=== PATIENT | male | born 1930 | race Caucasian/White ===

== ENCOUNTER 2018-12-30 04:16 | Inpatient (IN) | payer MEDICARE, BC ==
[2018-12-30] MEDS ORDERED: Acetaminophen 325 MG TAB PO PRN (07:43)
[2018-12-30] MEDS ORDERED: Ondansetron PF 4 MG/2 ML Vial IVP PRN ×2 (07:43→09:34)
[2018-12-30] MEDS ORDERED: Ondansetron ODT 4 MG TAB SL PRN (07:43)
[2018-12-30] MEDS ORDERED: Sodium Chloride 0.65% Nasal 44 ML BOT EA NARE PRN (09:34)
[2018-12-30] MEDS ORDERED: Ondansetron ODT 4 MG TAB PO PRN (09:34)
[2018-12-30] MEDS ORDERED: HumaLOG 300 UNITS/3 ML VIAL SC PRN ×2 (09:34)
[2018-12-30] MEDS ORDERED: Calcium Carbonate 500 MG ChewTAB PO PRN (09:34)
[2018-12-30] MEDS ORDERED: Loperamide HCl 2 MG CAP PO PRN (09:34)
[2018-12-30] MEDS ORDERED: Bisacodyl 10 MG SUPP PR PRN (09:34)
[2018-12-30] MEDS ORDERED: Diabetic Tussin 200 MG/10 ML UDCUP PO PRN (09:34)
[2018-12-30] MEDS ORDERED: Cepastat Lozenges 1 LOZ PO PRN (09:34)
[2018-12-30] MEDS ORDERED: Dextrose 50% Abboject 50 ML SYRINGE SLOW IVP PRN (09:34)
[2018-12-30] MEDS ORDERED: Artificial Tears 18 DROP/0.9 ML EA EYE PRN (09:34)
[2018-12-30] MEDS ORDERED: Dextrose 5% in Water 1,000 ML IV PRN (09:34)
[2018-12-30] MEDS ORDERED: HYDROcodone/Acetaminophen 5/325 mg Tablet PO PRN (09:34)
[2018-12-30] MEDS ORDERED: Loratadine 10 MG TAB PO PRN (09:34)
[2018-12-30] MEDS ORDERED: Senokot S 8.6-50 MG TAB PO PRN (09:34)
[2018-12-30] MEDS ORDERED: hydrALAZINE 20 MG/ML VIAL SLOW IVP PRN (09:34)
[2018-12-30] MEDS ORDERED: Multivitamins, Adult 10 ML in Sodium Chloride 0.9% 500 ML IV SCH (10:45)
--- NOTE | 2018-12-30 11:32 | HP ---
PRIMARY CARE PHYSICIAN: Dr. Lamonte Yee. REASON FOR ADMISSION: Transferred from [facility] for acute on chronic respiratory failure, encephalopathy, pneumonia, and sepsis. 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 He lives at home. He is under hospice care. He has out of hospital DNR. The patient has pretty much advanced dementia and he is not able to provide any history. I spoke with the patient's daughter medical power of attorney law clerk, Michelle on [phone] and got history from her. Last night, the patient was coughing. The patient's family member suspected some chocking. He was more hypoxic than usual. He was more altered than his usual and that is why the patient's called 911. The patient was initially taken to [facility], where he was febrile with a temperature 102. He was altered, confused and hypoxic and subsequently after giving him antibiotic therapy, the patient was transferred to our emergency room. The patient was given Rocephin and he did tolerate very well without any side effects. He was given IV fluid and Tylenol. REVIEW OF SYSTEMS: All review of system tried to review the patient, but unable to review at this point because of advanced Alzheimer dementia and encephalopathy. PAST MEDICAL HISTORY: Hospice patient, advanced parkinsonism, dementia with behavioral disturbance, Alzheimer's type of dementia, hypertension, diabetes type 2, coronary artery disease, chronic respiratory failure on home oxygen therapy, dyslipidemia, history of non-Hodgkin's lymphoma treated with chemotherapy, gastroesophageal reflux disease, moderate aortic regurgitation, and moderate aortic sclerosis. PAST SURGICAL HISTORY: CABG x4, appendicectomy, colonoscopy, and bilateral inguinal hernia repair. PAST PSYCHIATRIC HISTORY: Anxiety and depression, advanced dementia. ALLERGIES: PENICILLIN. SOCIAL HISTORY: The patient is , lives at home with his . He is under hospice care. No history of tobacco, alcohol, or illicit drug abuse. CODE STATUS: Discussed with the patient's medical power of attorney law clerk and confirmed DNR status. FAMILY HISTORY: No significant strong family history of premature coronary artery disease, stroke, or cancer. EMERGENCY ROOM COURSE: The patient has received Rocephin, levofloxacin, IV fluid, and Tylenol at [facility]. The patient also received 2 L of fluid in our emergency room. PHYSICAL EXAMINATION: VITAL SIGNS: On arrival; blood pressure 142/71, pulse 106, respiratory rate 26, temperature 102, and saturation 90% on room air. Weight 81.6 kg. GENERAL: The patient is completely encephalopathic, nonverbal, no obvious acute distress. HEENT: Head; normocephalic and atraumatic. Eyes; pupils round and reactive to light. Extraocular muscle intact. ENT: Oropharynx within normal limits. Moist mucous membranes. No oral lesion. No pharyngeal erythema. No exudate. NECK: Supple. No JVD. No thyromegaly. No carotid bruit. LUNGS: Bilateral coarse breath sound. No wheeze. No rhonchi. No accessory muscles of respiration in use. CARDIAC: S1 and S2 regular. Tachycardia. No murmur. No gallop. No rub. ABDOMEN: Soft. Bowel sounds present. Nontender. Nondistended. No organomegaly. No mass. No suprapubic tenderness. BACK: Unremarkable. No CVA tenderness. EXTREMITIES: Upper extremities; passive movement of all joints are normal. Lower extremities; passive movement of all joints are normal. No edema. Good distal pulsation. SKIN: No skin rash. HEMATOLOGICAL SYSTEM: No lymphadenopathy. NEUROLOGIC: Unable to assess at this point because the patient is unresponsive. SIGNIFICANT LABORATORY DATA: Chest x-ray based on my review, chronic changes without any acute infiltration noted. CBC; WBC 17.0, hemoglobin 15.0, MCV 101.1, platelet 191, with left shift. BMP; sodium 141, potassium 4.2, chloride 105, carbon dioxide 20, BUN 15, creatinine 0.83, glucose 201, calcium 9.1, lactic acid 4.0. LFT; AST 12, ALT 7, alkaline phosphatase 121, albumin 4.3, CK of 19, and lipase 9. ASSESSMENT AND PLAN: Impression: 1. Sepsis, most likely related with pneumonia, community-acquired pneumonia versus aspiration pneumonia. The patient was febrile high-grade fever with tachycardia, tachypnea, hypoxia, lactic acidosis, all consistent with sepsis. We will also rule out underlying urinary tract infection. 2. Pneumonia, community-acquired versus aspiration pneumonia. We will consult Speech Therapy for speech evaluation and dietary assessment. The patient will be kept on levofloxacin. We will follow up on culture result and change antibiotic therapy accordingly. 3. Acute on chronic respiratory failure with hypoxia, likely due to underlying pneumonia. We will continue with oxygen supplementation through facemask versus nasal cannula and monitor oxygen saturation while in hospital. 4. Lactic acidosis. We will continue with IV fluid, and we will repeat lactic acid level tomorrow. 5. Macrocytosis. We will continue folic acid and vitamin B12 therapy. 6. Deep venous thrombosis prophylaxis. Lovenox 40 mg subcu daily. 7. GI prophylaxis. Pepcid 20 mg p.o. or IV b.i.d. 8. Code status confirmed with the patient's daughter and the patient has DNR status. He is under hospice care. medical care manager will be consulted for discharge needs. 9. Diabetes, type 2. We will continue with insulin as per sliding scale protocol. 10. Advanced dementia with parkinsonism, Alzheimer dementia, as well as behavioral disturbance. We will provide supportive care while in hospital. DISPOSITION PLAN: Based on clinical course, we are expecting the patient's stay in hospital more than 2 midnights. Plan of care discussed with the patient's family member at bedside. The patient's long-term prognosis is poor. Job ID: [id number]
[2018-12-30] MEDS: Enoxaparin Sodium 40 MG/0.4 ML SYRINGE SC SCH (12:29)
[2018-12-30] MEDS: Sodium Chloride 0.9% 1,000 ML IV SCH (12:34)
[2018-12-30] MEDS: Famotidine/PF 20 mg/2ml Vial SLOW IVP SCH (22:08)
[2018-12-30] MEDS: Famotidine 20 MG TAB PO SCH (22:32)
[2018-12-31 04:01] VITALS: BMI 21.5
[2018-12-31] MEDS: Sodium Chloride 0.9% 1,000 ML IV SCH ×3 (04:51→20:49)
[2018-12-31 04:54] LABS: Bilirubin Negative (Negative); Blood, Urine Trace (Negative); Clarity Clear (Clear); Glucose, Urine (Dipstick) Normal (Negative); Leukocyte 250 Leu/uL (Negative); Nitrite Negative (Negative); Protein, Urine (Dipstick) 10 mg/dL (Neg-Trace); RBC/HPF 0-3 HPF (0-3); Squamous Epithelial 0-3 HPF (0-3); Urobilinogen Normal mg/dL (Less than 2); WBC/HPF 21-50 HPF (0-3)
[2018-12-31 04:55] LABS: Bacteria/HPF None Seen HPF (None Seen)
[2018-12-31 06:09] LABS: #Lymphocytes 1.5 thou/uL (1.20-3.40); #Monocytes 0.7 thou/uL (0.11-0.59); #Neutrophils 8.8 thou/uL (1.40-6.50); %Basophils 0.1 % (0.0-1.0); %Eosinophils 0.2 % (0.0-10.0); %Lymphocytes 13.6 % (21.0-51.0); %Monocytes 6.1 % (0.0-10.0); %Neutrophils 80.1 % (42.0-75.0); Hemoglobin 11.7 g/dL (14.0-18.0); Mean Corpuscular Hemoglobin 34.7 pg (27.0-31.0); Mean Platelet Volume 8.7 fL (7.4-10.4); Platelet Count 130 thou/uL (130-400); RBC Distribution Width 12.2 % (11.5-14.5); Red Blood Cell (RBC) Count 3.37 mill/uL (4.70-6.10)
[2018-12-31 06:10] LABS: Platelet Morphology Comment Appears Adequate
[2018-12-31 06:11] LABS: ALT (SGPT) 11 U/L (8-55); AST (SGOT) 9 U/L (5-34); Alkaline Phosphatase 77 U/L (40-150); Anion Gap 11 mmol/L (10-20); BUN (Urea Nitrogen) 9 mg/dL (8.4-25.7); Bilirubin, Total 0.9 mg/dL (0.2-1.2); Calc. Creatinine Clearance 69 mL/min (70-130); Calcium 8.2 mg/dL (7.8-10.44); Carbon Dioxide 23 mmol/L (23-31); Chloride 107 mmol/L (98-107); Estimated GFR-MDRD Greater than 90; Globulin 2.4 g/dL (2.4-3.5); Glucose 123 mg/dL (83-110); Potassium 3.6 mmol/L (3.5-5.1); Protein, Total 5.4 g/dL (5.8-8.1); Sodium 137 mmol/L (136-145)
[2018-12-31] MEDS: Acetaminophen 325 MG TAB PO PRN (07:30)
[2018-12-31] MEDS ORDERED: Acetaminophen 1,000 MG in Premix Bag 1 BAG IVPB PRN (08:18)
[2018-12-31] MEDS: Famotidine 20 MG TAB PO SCH ×2 (08:19→20:48)
[2018-12-31] MEDS: Folic Acid 1 MG TAB PO SCH (08:19)
[2018-12-31] MEDS: Vancomycin HCl 1 GM in Premix Bag 1 BAG IVPB SCH (08:19)
[2018-12-31] MEDS: Famotidine/PF 20 mg/2ml Vial SLOW IVP SCH ×2 (08:19→20:47)
[2018-12-31] MEDS: Cyanocobalamin (Vitamin B-12) 1,000 MCG TAB PO SCH (08:19)
[2018-12-31] MEDS: Enoxaparin Sodium 40 MG/0.4 ML SYRINGE SC SCH (08:20)
--- NOTE | 2018-12-31 11:38 | PDOC.PN ---
- Subjective Encounter Start Date: 12/31/18 Encounter Start Time: 10:00 -: old records requested/rev Patient seen and examined. No new complaints. No overnight events - Objective Resuscitation Status - Order Detail: 12/30/18 10:33 Resuscitation Status Routine Resuscitation Status: DNAR: NO Resuscitation Discussed with: discussed with daughter MIRA Reviewed: Yes Vital Signs & Weight: Vital Signs (12 hours) Temp Pulse Resp BP Pulse Ox 12/31/18 09:00 99.9 F H 72 22 H 110/69 97 12/31/18 08:15 100.8 F H 147 H 24 H 104/71 94 L 12/31/18 07:33 100.8 F H 144 H 22 H 106/76 93 L 12/31/18 03:36 99.2 F 70 18 105/61 96 12/31/18 00:04 99.2 F 74 18 109/64 98 Weight Weight 158 lb 11.725 oz I&O: 12/30/18 12/31/18 01/01/19 06:59 06:59 06:59 Intake Total 990 Balance 990 Result Diagrams: 12/31/18 05:04 12/31/18 05:04 Additional Labs: Accuchecks 12/31/18 12/31/18 12/30/18 10:56 05:17 16:00 POC Glucose 139 H 125 H 187 H 12/30/18 12:11 POC Glucose 141 H Phys Exam - Physical Examination Constitutional: NAD HEENT: PERRLA, moist MMs, sclera anicteric Neck: no JVD, supple Respiratory: no wheezing, no rales, no rhonchi Cardiovascular: RRR, no significant murmur, no rub Gastrointestinal: soft, non-tender, no distention, positive bowel sounds Musculoskeletal: no edema, pulses present Neurological: non-focal, normal sensation Lymphatic: no nodes Psychiatric: normal affect Skin: no rash, normal turgor Dx/Plan (1) Acute on chronic respiratory failure with hypoxemia Code(s): J96.21 - ACUTE AND CHRONIC RESPIRATORY FAILURE WITH HYPOXIA Status: Acute (2) Encephalopathy acute Code(s): G93.40 - ENCEPHALOPATHY, UNSPECIFIED Status: Acute Comment: acute on chronic due to sepsis (3) Lactic acidosis Code(s): E87.2 - ACIDOSIS Status: Acute (4) Pneumonia Code(s): J18.9 - PNEUMONIA, UNSPECIFIED ORGANISM Status: Acute Comment: aspiration vs community acquired, empirically treating for GNR (5) Sepsis Code(s): A41.9 - SEPSIS, UNSPECIFIED ORGANISM Status: Acute (6) UTI (urinary tract infection) Status: Acute (7) Diabetes type 2, controlled Code(s): E11.9 - TYPE 2 DIABETES MELLITUS WITHOUT COMPLICATIONS Status: Chronic (8) Macrocytosis Code(s): D75.89 - OTHER SPECIFIED DISEASES OF BLOOD AND BLOOD-FORMING ORGANS Status: Chronic (9) Parkinson's disease dementia Code(s): G20 - PARKINSON'S DISEASE; F02.80 - DEMENTIA IN OTH DISEASES CLASSD ELSWHR W/O BEHAVRL DISTURB Status: Chronic - Plan cont current plan of care, continue antibiotics * continue levaquin and add vancomycin * follow culture * medication reviewed as below * symptomatic treatment. * continue IVF Review of Systems - Review of Systems Other: unable to review due to advanced dementia - Medications/Allergies Allergies/Adverse Reactions: Allergies Allergy/AdvReac Type Severity Reaction Status Date / Time Penicillins Allergy Severe Verified 12/11/18 20:36 Medications: Current Medications Acetaminophen (Tylenol) 650 mg PO Q4H PRN PRN Reason: Headache/Fever/Mild Pain (1-3) Acetaminophen (Tylenol) 650 mg NV Q6H PRN PRN Reason: Headache/Fever or Pain Hydrocodone Bitart/Acetaminophen ([place] 5/325) 1 tab PO Q4H PRN PRN Reason: Moderate Pain (4-6) Albuterol/Ipratropium (Duoneb) 3 ml NEB [id number] [facility] Last Admin: 12/31/18 07:03 Dose: Not Given Artificial Tears (Tears Naturale) 2 drop EA EYE PRN PRN PRN Reason: Dry Eyes Bisacodyl (Dulcolax) 10 mg [place] DAILYPRN PRN PRN Reason: Constipation Calcium Carbonate (Tums) 1,000 mg PO Q4H PRN PRN Reason: Heartburn or Indigestion Cyanocobalamin (Vitamin B-12) 1,000 mcg PO DAILY [facility] Last Admin: 12/31/18 08:19 Dose: Not Given Dextrose/Water (Dextrose 50%) 25 gm SLOW IVP PRN PRN PRN Reason: Hypoglycemia Enoxaparin Sodium (Lovenox) 40 mg SC 0900 [facility] Last Admin: 12/31/18 08:20 Dose: 40 mg Famotidine (Pepcid) 20 mg SLOW IVP Q12HR [facility] Last Admin: 12/31/18 08:19 Dose: 20 mg Famotidine (Pepcid) 20 mg PO BID [facility] Last Admin: 12/31/18 08:19 Dose: Not Given Folic Acid (Folvite) 1 mg PO DAILY [facility] Last Admin: 12/31/18 08:19 Dose: Not Given Glucagon (Glucagon) 1 mg IM PRN PRN PRN Reason: Hypoglycemia Guaifenesin (Robitussin Sf) 200 mg PO Q4H PRN PRN Reason: Cough Hydralazine HCl (Apresoline) 10 mg SLOW IVP Q4H PRN PRN Reason: SBP > 180 and HR < 70 Dextrose/Water (D5w) 1,000 mls @ 0 mls/hr IV .Q0M PRN PRN Reason: Hypoglycemia Sodium Chloride (Normal Saline 0.9%) 1,000 mls @ 75 mls/hr IV .[id number] [facility] Last Admin: 12/31/18 04:51 Dose: Not Given Levofloxacin 750 mg/ Device 150 mls @ 100 mls/hr IVPB Q24HR [facility] Last Admin: 12/31/18 09:52 Dose: 150 mls Vancomycin HCl 1 gm/ Device 200 mls @ 200 mls/hr IVPB Q24HR [facility] Last Admin: 12/31/18 08:19 Dose: 200 mls Acetaminophen 1,000 mg/ Device 100 mls @ 400 mls/hr IVPB Q6H PRN PRN Reason: FEVER/PAIN Stop: 01/01/19 08:19 Insulin Human Lispro (Humalog) 0 units SC .MODERATE SLIDING SC PRN PRN Reason: Moderate Correctional Scale Insulin Human Lispro (Humalog) 0 units SC .BEDTIME SLIDING SC PRN PRN Reason: Bedtime Correctional Scale Loperamide HCl (Imodium) 2 mg PO PRN PRN PRN Reason: Diarrhea/Loose Stools Loratadine (Claritin) 10 mg PO DAILYPRN PRN PRN Reason: Sinus Symptoms Miscellaneous Medication (Pharmacy To Dose) 1 each IVPB ASDIR [facility] Ondansetron HCl (Zofran Odt) 4 mg PO Q6H PRN PRN Reason: Nausea/Vomiting Ondansetron HCl (Zofran) 4 mg IVP Q6H PRN PRN Reason: Nausea/Vomiting Senna/Docusate Sodium (Senokot S) 2 tab PO BID PRN PRN Reason: Constipation Sodium Chloride ([place] Nasal [place] 0.65%) 0 ml EA NARE QIDPRN PRN PRN Reason: Nasal Congestion Throat Lozenges (Cepastat Lozenges) 1 rambo PO Q2H PRN PRN Reason: Sore Throat
[2018-12-31] MEDS ORDERED: Ketorolac Tromethamine 30 MG/ML VIAL IVP SCH (14:15)
--- NOTE | 2018-12-31 17:07 | RAD ---
SINGLE VIEW OF THE ABDOMEN: Comparison: 12-13-18 History: Abdominal discomfort. FINDINGS: Single view of the abdomen shows a nonspecific, nonobstructed bowel gas pattern. No suspicious calcif ications are seen projecting over either renal shadow. Surgical clips are seen near the gastroesophag eal junction. IMPRESSION: Nonobstructed bowel gas pattern. POS: C
[2018-12-31] MEDS ORDERED: Scopolamine 1.5 mg/72 hour Patch TD SCH (18:30)
[2019-01-01 06:23] LABS: #Lymphocytes 1.4 thou/uL (1.20-3.40); #Monocytes 0.6 thou/uL (0.11-0.59); #Neutrophils 6.6 thou/uL (1.40-6.50); %Basophils 0.1 % (0.0-1.0); %Eosinophils 0.5 % (0.0-10.0); %Lymphocytes 15.9 % (21.0-51.0); %Monocytes 6.5 % (0.0-10.0); %Neutrophils 77.1 % (42.0-75.0); Hemoglobin 11.4 g/dL (14.0-18.0); Mean Corpuscular HGB CONC 32.9 g/dL (32.0-36.0); Mean Corpuscular Hemoglobin 34.8 pg (27.0-31.0); Mean Platelet Volume 9.1 fL (7.4-10.4); Platelet Count 127 thou/uL (130-400); RBC Distribution Width 12.2 % (11.5-14.5); Red Blood Cell (RBC) Count 3.27 mill/uL (4.70-6.10); White Blood Cell (WBC) Count 8.5 thou/uL (4.8-10.8)
[2019-01-01 06:34] LABS: Anion Gap 12 mmol/L (10-20); BUN (Urea Nitrogen) 8 mg/dL (8.4-25.7); Calc. Creatinine Clearance 78 mL/min (70-130); Calcium 8.1 mg/dL (7.8-10.44); Carbon Dioxide 20 mmol/L (23-31); Chloride 108 mmol/L (98-107); Estimated GFR-MDRD Greater than 90; Glucose 104 mg/dL (83-110); Potassium 3.8 mmol/L (3.5-5.1); Sodium 136 mmol/L (136-145)
[2019-01-01] MEDS: Cyanocobalamin (Vitamin B-12) 1,000 MCG TAB PO SCH (08:45)
[2019-01-01] MEDS: Famotidine 20 MG TAB PO SCH ×2 (08:45→20:05)
[2019-01-01] MEDS: Folic Acid 1 MG TAB PO SCH (08:45)
[2019-01-01] MEDS: Enoxaparin Sodium 40 MG/0.4 ML SYRINGE SC SCH (08:46)
[2019-01-01] MEDS: Famotidine/PF 20 mg/2ml Vial SLOW IVP SCH ×2 (08:46→20:05)
[2019-01-01] MEDS: Vancomycin HCl 1 GM in Premix Bag 1 BAG IVPB SCH (08:56)
--- NOTE | 2019-01-01 11:47 | PDOC.PALCO ---
Palliative Care Consult - Consult Details Requesting Physician: Dr Azar Reason for Consult: goals of care, assistance with communication prognosis/ disease Family Members Present: , daughters - Pertinent HPI Patient previously on hospice for Parkinson with advanced dementia. [facility]ocked hospice at was taken to the ER secondary to respiratory distress and changes in what was the patients baseline mental status. - Pertinent PMH DMII, CAD, Alzheimer, Parkinson, Non-hodgkins lymphoma treated with chemo, GERD , Aortic regerg. - Social History Smoking Status: Never smoker Smoking: no tobacco exposure Alcohol Use: none Drug Use History: none Living Situation: - Medications MAR Reviewed: Yes - Allergies Allergies/Adverse Reactions: Allergies Allergy/AdvReac Type Severity Reaction Status Date / Time Penicillins Allergy Severe Verified 12/11/18 20:36 - Objective Vital Signs: Vital Signs - Most Recent Temp Pulse Resp BP Pulse Ox 98.8 F 71 20 122/69 100 01/01/19 11:19 01/01/19 11:19 01/01/19 11:19 01/01/19 11:19 01/01/19 11:19 Palliative Performance Scale: 40 - Physical Exam Constitutional: confusion HEENT: PERRLA, EOMI Cardiovascular: RRR Gastrointestinal: soft, non-tender Deviation from normal: slightly flat affect Deviation from normal: pallor - Problem List (1) Palliative care encounter Code(s): Z51.5 - ENCOUNTER FOR PALLIATIVE CARE Current Visit: Yes Status: Acute - Plan/Recommendations Plan: Met with patient, and two daughters. Family not in agreement in relation to potentially having patient reside at an assisted living secondary to continued decline. Patient currently resides at home with , hospice, and [employer] paid caregivers. *Discussed management of disease progression and continued potential complications *Discussed management of symptoms at home to manage symptoms of terminal conditions *Scopolamine patch ordered for secretions *Discussed oral care *Teaching in relation to dysphagia Report given to Dulce Maria Singh RN. I will continue to follow patient with Dulce Maria Singh to transition back to hospice. [90] minutes spent on this encounter with >50% of the time in counseling and coordination of care. Thank you for this very appropriate consult.
[2019-01-01] MEDS: Ketorolac Tromethamine 30 MG/ML VIAL IVP PRN (13:06)
[2019-01-01] MEDS: Sodium Chloride 0.9% 1,000 ML IV SCH ×2 (13:55→20:05)
--- NOTE | 2019-01-01 14:43 | PDOC.PN ---
- Subjective Encounter Start Date: 01/01/19 Encounter Start Time: 08:45 Patient seen and examined. No overnight events - Objective Resuscitation Status - Order Detail: 12/30/18 10:33 Resuscitation Status Routine Resuscitation Status: DNAR: NO Resuscitation Discussed with: discussed with daughter MIRA Reviewed: Yes Vital Signs & Weight: Vital Signs (12 hours) Temp Pulse Resp BP Pulse Ox 01/01/19 12:59 72 16 100 01/01/19 12:00 98.2 F 01/01/19 11:19 98.8 F 71 20 122/69 100 01/01/19 08:00 99.1 F 73 20 109/61 98 01/01/19 06:24 72 16 100 01/01/19 03:31 99.8 F H 76 18 131/75 100 Weight Weight 158 lb 11.725 oz I&O: 12/31/18 01/01/19 01/02/19 06:59 06:59 06:59 Intake Total 990 2145 700 Balance 990 2145 700 Result Diagrams: 01/01/19 05:51 01/01/19 05:51 Additional Labs: Accuchecks 01/01/19 01/01/19 12/31/18 11:18 05:31 20:39 POC Glucose 141 H 106 121 H 12/31/18 16:20 POC Glucose 128 H Phys Exam - Physical Examination Constitutional: NAD HEENT: moist MMs, sclera anicteric Neck: no JVD, supple Respiratory: no wheezing, no rales, no rhonchi Cardiovascular: RRR, no significant murmur, no rub Gastrointestinal: soft, non-tender, no distention, positive bowel sounds Musculoskeletal: no edema, pulses present Neurological: non-focal, normal sensation Psychiatric: normal affect Skin: no rash, normal turgor Dx/Plan (1) Acute on chronic respiratory failure with hypoxemia Code(s): J96.21 - ACUTE AND CHRONIC RESPIRATORY FAILURE WITH HYPOXIA Status: Acute (2) Encephalopathy acute Code(s): G93.40 - ENCEPHALOPATHY, UNSPECIFIED Status: Acute Comment: acute on chronic due to sepsis (3) Lactic acidosis Code(s): E87.2 - ACIDOSIS Status: Acute (4) Pneumonia Code(s): J18.9 - PNEUMONIA, UNSPECIFIED ORGANISM Status: Acute Comment: aspiration vs community acquired, empirically treating for GNR (5) Sepsis Code(s): A41.9 - SEPSIS, UNSPECIFIED ORGANISM Status: Acute (6) UTI (urinary tract infection) Status: Acute (7) Diabetes type 2, controlled Code(s): E11.9 - TYPE 2 DIABETES MELLITUS WITHOUT COMPLICATIONS Status: Chronic (8) Macrocytosis Code(s): D75.89 - OTHER SPECIFIED DISEASES OF BLOOD AND BLOOD-FORMING ORGANS Status: Chronic Comment: with anemia (9) Parkinson's disease dementia Code(s): G20 - PARKINSON'S DISEASE; F02.80 - DEMENTIA IN OTH DISEASES CLASSD ELSWHR W/O BEHAVRL DISTURB Status: Chronic - Plan cont current plan of care, plan discussed w/ family, continue antibiotics, social media marketing manager * medication reviewed as below * symptomatic treatment * continue empiric antibiotics. Review of Systems - Review of Systems Other: not reliable due to dementia - Medications/Allergies Allergies/Adverse Reactions: Allergies Allergy/AdvReac Type Severity Reaction Status Date / Time Penicillins Allergy Severe Verified 12/11/18 20:36 Medications: Current Medications Acetaminophen (Tylenol) 650 mg PO Q4H PRN PRN Reason: Headache/Fever/Mild Pain (1-3) Acetaminophen (Tylenol) 650 mg AL Q6H PRN PRN Reason: Headache/Fever or Pain Hydrocodone Bitart/Acetaminophen ([place] 5/325) 1 tab PO Q4H PRN PRN Reason: Moderate Pain (4-6) Albuterol/Ipratropium (Duoneb) 3 ml NEB [id number] [facility] Last Admin: 01/01/19 12:59 Dose: 3 ml Artificial Tears (Tears Naturale) 2 drop EA EYE PRN PRN PRN Reason: Dry Eyes Bisacodyl (Dulcolax) 10 mg [place] DAILYPRN PRN PRN Reason: Constipation Calcium Carbonate (Tums) 1,000 mg PO Q4H PRN PRN Reason: Heartburn or Indigestion Cyanocobalamin (Vitamin B-12) 1,000 mcg PO DAILY [facility] Last Admin: 01/01/19 08:45 Dose: 1,000 mcg Dextrose/Water (Dextrose 50%) 25 gm SLOW IVP PRN PRN PRN Reason: Hypoglycemia Enoxaparin Sodium (Lovenox) 40 mg SC 0900 [facility] Last Admin: 01/01/19 08:46 Dose: 40 mg Famotidine (Pepcid) 20 mg SLOW IVP Q12HR [facility] Last Admin: 01/01/19 08:46 Dose: Not Given Famotidine (Pepcid) 20 mg PO BID [facility] Last Admin: 01/01/19 08:45 Dose: 20 mg Folic Acid (Folvite) 1 mg PO DAILY [facility] Last Admin: 01/01/19 08:45 Dose: 1 mg Glucagon (Glucagon) 1 mg IM PRN PRN PRN Reason: Hypoglycemia Guaifenesin (Robitussin Sf) 200 mg PO Q4H PRN PRN Reason: Cough Hydralazine HCl (Apresoline) 10 mg SLOW IVP Q4H PRN PRN Reason: SBP > 180 and HR < 70 Dextrose/Water (D5w) 1,000 mls @ 0 mls/hr IV .Q0M PRN PRN Reason: Hypoglycemia Sodium Chloride (Normal Saline 0.9%) 1,000 mls @ 75 mls/hr IV .[id number] [facility] Last Admin: 01/01/19 13:55 Dose: 1,000 mls Levofloxacin 750 mg/ Device 150 mls @ 100 mls/hr IVPB Q24HR [facility] Last Admin: 01/01/19 10:49 Dose: 150 mls Vancomycin HCl 1 gm/ Device 200 mls @ 200 mls/hr IVPB Q24HR [facility] Last Admin: 01/01/19 08:56 Dose: 200 mls Insulin Human Lispro (Humalog) 0 units SC .MODERATE SLIDING SC PRN PRN Reason: Moderate Correctional Scale Insulin Human Lispro (Humalog) 0 units SC .BEDTIME SLIDING SC PRN PRN Reason: Bedtime Correctional Scale Ketorolac Tromethamine (Toradol) 15 mg IVP Q6H PRN PRN Reason: Pain Stop: 01/05/19 14:14 Last Admin: 01/01/19 13:06 Dose: 15 mg Loperamide HCl (Imodium) 2 mg PO PRN PRN PRN Reason: Diarrhea/Loose Stools Loratadine (Claritin) 10 mg PO DAILYPRN PRN PRN Reason: Sinus Symptoms Miscellaneous Medication (Pharmacy To Dose) 1 each IVPB ASDIR [facility] Ondansetron HCl (Zofran Odt) 4 mg PO Q6H PRN PRN Reason: Nausea/Vomiting Ondansetron HCl (Zofran) 4 mg IVP Q6H PRN PRN Reason: Nausea/Vomiting Scopolamine (Transderm Scop) 1.5 mg TD Q3D [facility] Last Admin: 12/31/18 18:15 Dose: 1.5 mg Senna/Docusate Sodium (Senokot S) 2 tab PO BID PRN PRN Reason: Constipation Sodium Chloride ([place] Nasal [place] 0.65%) 0 ml EA NARE QIDPRN PRN PRN Reason: Nasal Congestion Throat Lozenges (Cepastat Lozenges) 1 rambo PO Q2H PRN PRN Reason: Sore Throat
--- NOTE | 2019-01-01 16:00 | PQF ---
CLINICAL DOCUMENTATION IMPROVEMENT CLARIFICATION FORM: ICD-10 Updated PLEASE DO AN ADDENDUM TO THE PROGRESS NOTE WITH ANY DOCUMENTATION UPDATES OR ADDITIONS AND CARRY THROUGH TO DC SUMMARY. THANK YOU. DATE: 01/01/19 ATTN: DR. PFEIFFER Please exercise your independent, professional judgment in responding to the clarification form. Clinical indicators are provided on the bottom of this form for your review Please check appropriate box(s): [ x ] Encephalopathy: Type: [ x ] Acute [ ] Subacute [ ] Chronic Etiology: [ ] Hypertensive [x ] Metabolic [ ] Toxic [ ] Hepatic with Coma [ ] Hepatic w/o Coma [ ] Hypoxic [ x ] Septic [ ] Drug induced: [ ] Unspecified [ ] in the setting of underlying dementia [ ] Other (please specify) [ ] Transient Alteration of Awareness [ ] Other diagnosis [ ] Unable to determine In addition, please specify: Present on Admission (POA): [ x ] Yes [ ] No [ ] Unable to determine For continuity of documentation, please document condition throughout progress notes and discharge summary. Thank You. CLINICAL INDICATORS - SIGNS / SYMPTOMS / LABS PROGRESS NOTE 12/31: "ACUTE ENCEPHALOPATHY" RISKS: SEPSIS PNEUMONIA H/O DEMENTIA TREATMENT: IV FLUIDS (ER-PRESENT) IV VANCOMYCIN (12/31-PRESENT) IV LEVAQUIN (12/30-PRESENT) URINE CULTURE (This form is maintained as a part of the permanent medical record) 2014 [email or web address], [employer]. All Rights Reserved TONE [email or web address] Office: [phone] [email or web address]
[2019-01-01] MEDS: Acetaminophen 325 MG TAB PO PRN (16:40)
[2019-01-02] MEDS: Ketorolac Tromethamine 30 MG/ML VIAL IVP PRN (02:31)
[2019-01-02 08:27] LABS: Vancomycin, Trough 5.7 ug/mL
[2019-01-02] MEDS: Cyanocobalamin (Vitamin B-12) 1,000 MCG TAB PO SCH (08:51)
[2019-01-02] MEDS: Famotidine 20 MG TAB PO SCH ×2 (08:51→20:39)
[2019-01-02] MEDS: Folic Acid 1 MG TAB PO SCH (08:51)
[2019-01-02] MEDS: Vancomycin HCl 1 GM in Premix Bag 1 BAG IVPB SCH (08:52)
[2019-01-02] MEDS: Enoxaparin Sodium 40 MG/0.4 ML SYRINGE SC SCH (08:55)
[2019-01-02] MEDS ORDERED: Vancomycin HCl 500 MG in Sodium Chloride 0.9% 100 ML IVPB SCH (09:30)
--- NOTE | 2019-01-02 09:43 | DIS ---
DATE OF ADMISSION: 12/30/2018 DATE OF DISCHARGE: 01/02/2019 PRIMARY CARE PHYSICIAN: Lamonte Yee MD DISCHARGE DISPOSITION: Home with hospice. PRIMARY DISCHARGE DIAGNOSES: 1. Acute respiratory failure with hypoxia. 2. Aspiration pneumonia. 3. Acute on chronic encephalopathy due to sepsis and metabolic etiology. 4. Urinary tract infection. SECONDARY DISCHARGE DIAGNOSES: Chronic respiratory failure with hypoxia, requiring home oxygen; macrocytosis; diabetes type 2; Parkinson disease; advanced dementia; physical deconditioning. PRIMARY PROCEDURE/OPERATION: None. RADIOLOGICAL INVESTIGATION: Abdominal x-ray and chest x-ray. SIGNIFICANT LABS: Hemoglobin 11.4. Creatinine 0.68. Urinalysis is suggestive of UTI. Urine culture is negative. DISCHARGE MEDICATIONS: The patient will continue all his previous medications without any significant change. We were not able to verify his home medication during this admission. The patient was on following medication as per our hospital previous paperwork. 1. Senokot 2 tablets twice daily. 2. Florastor 250 mg daily. 3. Exelon Patch daily. 4. MiraLAX 17 g daily. 5. Ativan 0.5 mg q.8 hourly p.r.n. 6. Levaquin 500 mg p.o. daily for 7 more days. 7. DuoNeb q.6 hourly p.r.n. 8. Folic acid 1 mg p.o. daily. 9. Vitamin B12 1000 mcg p.o. daily. 10. Carbidopa/levodopa 1/2 tablet t.i.d. 11. Dulcolax 10 mg per rectum daily p.r.n. 12. Restoril 15 mg p.o. at bedtime. 13. Mirapex 0.125 mg p.o. t.i.d. 14. Metformin 1000 mg p.o. b.i.d. 15. Claritin 10 mg daily p.r.n. 16. Aspirin 81 mg p.o. daily. 17. Tylenol 650 mg p.o. q.6 hourly p.r.n. CONTRAINDICATION: None. CODE STATUS: DNR. 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 ALLERGIES: PENICILLIN. DISCHARGE PLAN: Posthospital, the patient will be discharged to home with home hospice. HOSPITAL COURSE: This is an 88-year-old male, who has home hospice. At home, he was altered and confused and lethargic. His oxygen saturation was low. The patient's called 911. Hospice was revoked and the patient was initially evaluated at other emergency room at [place], and subsequently, he was transferred to our hospital. This patient was having acute on chronic respiratory failure with hypoxia. He was having acute on chronic encephalopathy due to sepsis and metabolic etiology. He was suspected for aspiration pneumonia and his urinalysis was consistent with UTI. During this hospital course, we treated him with Levaquin and vancomycin. We gave him IV fluid. His culture remained negative. Initially, he was febrile, but subsequently with IV antibiotic therapy, he remained afebrile for 48 hours. The patient is more alert and he is up to his baseline level. He will need again hospice on discharge. I have seen and examined the patient at bedside today. His examination has not changed from yesterday, but he is doing much better. His lungs are clear. Cardiac examination is normal. All new medication and prescription will be sent to his pharmacy. He will continue all previous medication as per his physician from hospice team. Job ID: [id number]
[2019-01-02] MEDS: Famotidine/PF 20 mg/2ml Vial SLOW IVP SCH ×2 (10:40→20:31)
--- NOTE | 2019-01-02 11:22 | PDOC.PN ---
- Subjective Encounter Start Date: 01/02/19 Encounter Start Time: 08:00 last night he did not sleep, this morning he is sleepy, restless, no fever - Objective Resuscitation Status - Order Detail: 12/30/18 10:33 Resuscitation Status Routine Resuscitation Status: DNAR: NO Resuscitation Discussed with: discussed with daughter MIRA Reviewed: Yes Vital Signs & Weight: Vital Signs (12 hours) Temp Pulse Resp BP Pulse Ox 01/02/19 07:25 98.4 F 70 17 137/75 100 01/02/19 04:05 98.5 F 65 16 117/68 95 01/02/19 01:07 98.1 F 77 16 162/75 H 100 01/02/19 00:20 65 16 100 Weight Weight 158 lb 11.725 oz I&O: 01/01/19 01/02/19 01/03/19 06:59 06:59 06:59 Intake Total 2145 1765 Balance 2145 1765 Result Diagrams: 01/01/19 05:51 01/01/19 05:51 Additional Labs: Accuchecks 01/02/19 01/01/19 01/01/19 06:03 20:53 15:51 POC Glucose 100 109 160 H 01/01/19 11:18 POC Glucose 141 H Phys Exam - Physical Examination Constitutional: NAD sleepy HEENT: PERRLA, sclera anicteric Neck: no JVD, supple Respiratory: no wheezing, no rales, no rhonchi Cardiovascular: RRR, no significant murmur, no rub Gastrointestinal: soft, non-tender, no distention, positive bowel sounds Musculoskeletal: no edema, pulses present Lymphatic: no nodes Skin: no rash, normal turgor Dx/Plan (1) Acute on chronic respiratory failure with hypoxemia Code(s): J96.21 - ACUTE AND CHRONIC RESPIRATORY FAILURE WITH HYPOXIA Status: Acute (2) Encephalopathy acute Code(s): G93.40 - ENCEPHALOPATHY, UNSPECIFIED Status: Acute Comment: acute on chronic due to sepsis (3) Lactic acidosis Code(s): E87.2 - ACIDOSIS Status: Acute (4) Pneumonia Code(s): J18.9 - PNEUMONIA, UNSPECIFIED ORGANISM Status: Acute Comment: aspiration vs community acquired, empirically treating for GNR (5) Sepsis Code(s): A41.9 - SEPSIS, UNSPECIFIED ORGANISM Status: Acute (6) UTI (urinary tract infection) Status: Acute (7) Diabetes type 2, controlled Code(s): E11.9 - TYPE 2 DIABETES MELLITUS WITHOUT COMPLICATIONS Status: Chronic (8) Macrocytosis Code(s): D75.89 - OTHER SPECIFIED DISEASES OF BLOOD AND BLOOD-FORMING ORGANS Status: Chronic Comment: with anemia (9) Parkinson's disease dementia Code(s): G20 - PARKINSON'S DISEASE; F02.80 - DEMENTIA IN OTH DISEASES CLASSD ELSWHR W/O BEHAVRL DISTURB Status: Chronic - Plan cont current plan of care, plan discussed w/ family, 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 Review of Systems - Review of Systems Other: not reliable due to dementia - Medications/Allergies Allergies/Adverse Reactions: Allergies Allergy/AdvReac Type Severity Reaction Status Date / Time Penicillins Allergy Severe Verified 12/11/18 20:36 Medications: Current Medications Acetaminophen (Tylenol) 650 mg PO Q4H PRN PRN Reason: Headache/Fever/Mild Pain (1-3) Last Admin: 01/01/19 16:40 Dose: 650 mg Acetaminophen (Tylenol) 650 mg [place] Q6H PRN PRN Reason: Headache/Fever or Pain Albuterol/Ipratropium (Duoneb) 3 ml NEB [id number] [facility] Last Admin: 01/02/19 07:15 Dose: 3 ml Artificial Tears (Tears Naturale) 2 drop EA EYE PRN PRN PRN Reason: Dry Eyes Bisacodyl (Dulcolax) 10 mg [place] DAILYPRN PRN PRN Reason: Constipation Calcium Carbonate (Tums) 1,000 mg PO Q4H PRN PRN Reason: Heartburn or Indigestion Cyanocobalamin (Vitamin B-12) 1,000 mcg PO DAILY [facility] Last Admin: 01/02/19 08:51 Dose: 1,000 mcg Dextrose/Water (Dextrose 50%) 25 gm SLOW IVP PRN PRN PRN Reason: Hypoglycemia Enoxaparin Sodium (Lovenox) 40 mg SC 0900 [facility] Last Admin: 01/02/19 08:55 Dose: 40 mg Famotidine (Pepcid) 20 mg SLOW IVP Q12HR [facility] Last Admin: 01/02/19 10:40 Dose: Not Given Famotidine (Pepcid) 20 mg PO BID [facility] Last Admin: 01/02/19 08:51 Dose: 20 mg Folic Acid (Folvite) 1 mg PO DAILY [facility] Last Admin: 01/02/19 08:51 Dose: 1 mg Glucagon (Glucagon) 1 mg IM PRN PRN PRN Reason: Hypoglycemia Guaifenesin (Robitussin Sf) 200 mg PO Q4H PRN PRN Reason: Cough Hydralazine HCl (Apresoline) 10 mg SLOW IVP Q4H PRN PRN Reason: SBP > 180 and HR < 70 Dextrose/Water (D5w) 1,000 mls @ 0 mls/hr IV .Q0M PRN PRN Reason: Hypoglycemia Sodium Chloride (Normal Saline 0.9%) 1,000 mls @ 75 mls/hr IV .[id number] [facility] Last Admin: 01/01/19 20:05 Dose: 1,000 mls Levofloxacin 750 mg/ Device 150 mls @ 100 mls/hr IVPB Q24HR [facility] Last Admin: 01/02/19 10:48 Dose: 150 mls Vancomycin HCl 500 mg/ Sodium (Chloride) 100 mls @ 100 mls/hr IVPB NOW [facility] Stop: 01/02/19 11:30 Vancomycin HCl 1.5 gm/ Sodium (Chloride) 300 mls @ 200 mls/hr IVPB 0900 [facility] Insulin Human Lispro (Humalog) 0 units SC .MODERATE SLIDING SC PRN PRN Reason: Moderate Correctional Scale Insulin Human Lispro (Humalog) 0 units SC .BEDTIME SLIDING SC PRN PRN Reason: Bedtime Correctional Scale Ketorolac Tromethamine (Toradol) 15 mg IVP Q6H PRN PRN Reason: Pain Stop: 01/05/19 14:14 Last Admin: 01/02/19 02:31 Dose: 15 mg Loperamide HCl (Imodium) 2 mg PO PRN PRN PRN Reason: Diarrhea/Loose Stools Loratadine (Claritin) 10 mg PO DAILYPRN PRN PRN Reason: Sinus Symptoms Miscellaneous Medication (Pharmacy To Dose) 1 each IVPB [facility] Ondansetron HCl (Zofran Odt) 4 mg PO Q6H PRN PRN Reason: Nausea/Vomiting Ondansetron HCl (Zofran) 4 mg IVP Q6H PRN PRN Reason: Nausea/Vomiting Senna/Docusate Sodium (Senokot S) 2 tab PO BID PRN PRN Reason: Constipation Sodium Chloride ([place] Nasal [place] 0.65%) 0 ml EA NARE QIDPRN PRN PRN Reason: Nasal Congestion Throat Lozenges (Cepastat Lozenges) 1 rambo PO Q2H PRN PRN Reason: Sore Throat
[2019-01-02 11:49] LABS: #Eosinphils 0.1 thou/uL (0.0-0.7); #Monocytes 0.6 thou/uL (0.11-0.59); %Basophils 0.2 % (0.0-1.0); %Eosinophils 2.1 % (0.0-10.0); %Lymphocytes 15.4 % (21.0-51.0); %Monocytes 8.6 % (0.0-10.0); %Neutrophils 73.8 % (42.0-75.0); Hemoglobin 11.7 g/dL (14.0-18.0); Mean Corpuscular HGB CONC 32.1 g/dL (32.0-36.0); Mean Corpuscular Hemoglobin 33.4 pg (27.0-31.0); Mean Platelet Volume 8.8 fL (7.4-10.4); Platelet Count 133 thou/uL (130-400); RBC Distribution Width 11.9 % (11.5-14.5); Red Blood Cell (RBC) Count 3.51 mill/uL (4.70-6.10); White Blood Cell (WBC) Count 6.7 thou/uL (4.8-10.8)
[2019-01-02 12:13] LABS: Anion Gap 12 mmol/L (10-20); BUN (Urea Nitrogen) 8 mg/dL (8.4-25.7); Calc. Creatinine Clearance 77 mL/min (70-130); Calcium 8.5 mg/dL (7.8-10.44); Carbon Dioxide 23 mmol/L (23-31); Chloride 107 mmol/L (98-107); Estimated GFR-MDRD Greater than 90; Glucose 119 mg/dL (83-110); Potassium 3.7 mmol/L (3.5-5.1); Sodium 138 mmol/L (136-145)
[2019-01-02] MEDS: Sodium Chloride 0.9% 1,000 ML IV SCH ×2 (15:44→20:31)
[2019-01-03 05:02] LABS: #Eosinphils 0.1 thou/uL (0.0-0.7); #Lymphocytes 1.2 thou/uL (1.20-3.40); #Monocytes 0.6 thou/uL (0.11-0.59); #Neutrophils 3.3 thou/uL (1.40-6.50); %Basophils 0.3 % (0.0-1.0); %Lymphocytes 22.7 % (21.0-51.0); %Monocytes 12.1 % (0.0-10.0); %Neutrophils 62.7 % (42.0-75.0); Hemoglobin 11.4 g/dL (14.0-18.0); Mean Corpuscular HGB CONC 32.3 g/dL (32.0-36.0); Mean Corpuscular Hemoglobin 33.6 pg (27.0-31.0); Mean Platelet Volume 8.4 fL (7.4-10.4); Platelet Count 147 thou/uL (130-400); RBC Distribution Width 11.9 % (11.5-14.5); White Blood Cell (WBC) Count 5.2 thou/uL (4.8-10.8)
[2019-01-03 05:21] LABS: Anion Gap 11 mmol/L (10-20); BUN (Urea Nitrogen) 7 mg/dL (8.4-25.7); Calc. Creatinine Clearance 79 mL/min (70-130); Calcium 8.4 mg/dL (7.8-10.44); Carbon Dioxide 23 mmol/L (23-31); Chloride 108 mmol/L (98-107); Estimated GFR-MDRD Greater than 90; Glucose 99 mg/dL (83-110); Potassium 3.5 mmol/L (3.5-5.1); Sodium 138 mmol/L (136-145)
[2019-01-03] MEDS: Vancomycin HCl 1.5 GM in Sodium Chloride 0.9% 250 ML 300 ML IVPB SCH (09:51)
[2019-01-03] MEDS: Cyanocobalamin (Vitamin B-12) 1,000 MCG TAB PO SCH (09:51)
[2019-01-03] MEDS: Folic Acid 1 MG TAB PO SCH (09:52)
[2019-01-03] MEDS: Famotidine/PF 20 mg/2ml Vial SLOW IVP SCH ×2 (09:52→20:33)
[2019-01-03] MEDS: Enoxaparin Sodium 40 MG/0.4 ML SYRINGE SC SCH (09:52)
[2019-01-03] MEDS: Famotidine 20 MG TAB PO SCH ×2 (09:52→20:33)
[2019-01-03] MEDS: Sodium Chloride 0.9% 1,000 ML IV SCH ×2 (09:58→20:49)
--- NOTE | 2019-01-03 10:28 | PDOC.PN ---
- Subjective Encounter Start Date: 01/03/19 Encounter Start Time: 07:50 Patient seen and examined. No new complaints. No overnight events - Objective Resuscitation Status - Order Detail: 12/30/18 10:33 Resuscitation Status Routine Resuscitation Status: DNAR: NO Resuscitation Discussed with: discussed with daughter MIRA Reviewed: Yes Vital Signs & Weight: Vital Signs (12 hours) Temp Pulse Resp BP Pulse Ox 01/03/19 07:47 97 01/03/19 07:46 62 16 97 01/03/19 07:43 98.5 F 62 16 149/75 H 95 01/03/19 04:00 98.7 F 61 20 131/71 93 L 01/03/19 01:13 71 18 97 01/03/19 00:00 100.6 F H 69 16 144/75 H 94 L Weight Weight 158 lb 11.725 oz I&O: 01/02/19 01/03/19 01/04/19 06:59 06:59 06:59 Intake Total 1765 990 Balance 1765 990 Result Diagrams: 01/03/19 04:25 01/03/19 04:25 Additional Labs: Accuchecks 01/03/19 01/02/19 01/02/19 05:27 21:08 16:23 POC Glucose 93 110 128 H 01/02/19 11:46 POC Glucose 120 H EKG Reviewed by me: Yes Phys Exam - Physical Examination Constitutional: NAD HEENT: moist MMs, sclera anicteric Neck: no JVD, supple Respiratory: no wheezing, no rales, no rhonchi Cardiovascular: RRR, no significant murmur, no rub Gastrointestinal: soft, non-tender, no distention, positive bowel sounds Musculoskeletal: no edema, pulses present Neurological: non-focal, normal sensation Lymphatic: no nodes Psychiatric: normal affect Skin: no rash, normal turgor Dx/Plan (1) Acute on chronic respiratory failure with hypoxemia Code(s): J96.21 - ACUTE AND CHRONIC RESPIRATORY FAILURE WITH HYPOXIA Status: Acute (2) Encephalopathy acute Code(s): G93.40 - ENCEPHALOPATHY, UNSPECIFIED Status: Acute Comment: acute on chronic due to sepsis (3) Lactic acidosis Code(s): E87.2 - ACIDOSIS Status: Acute (4) Pneumonia Code(s): J18.9 - PNEUMONIA, UNSPECIFIED ORGANISM Status: Acute Comment: aspiration vs community acquired, empirically treating for GNR (5) Sepsis Code(s): A41.9 - SEPSIS, UNSPECIFIED ORGANISM Status: Acute (6) UTI (urinary tract infection) Status: Acute (7) Diabetes type 2, controlled Code(s): E11.9 - TYPE 2 DIABETES MELLITUS WITHOUT COMPLICATIONS Status: Chronic (8) Macrocytosis Code(s): D75.89 - OTHER SPECIFIED DISEASES OF BLOOD AND BLOOD-FORMING ORGANS Status: Chronic Comment: with anemia (9) Parkinson's disease dementia Code(s): G20 - PARKINSON'S DISEASE; F02.80 - DEMENTIA IN OTH DISEASES CLASSD ELSWHR W/O BEHAVRL DISTURB Status: Chronic - Plan cont current plan of care, continue antibiotics * medication reviewed as below * symptomatic treatment * see discharge tanya. Review of Systems - Review of Systems ENT: negative: Ear Pain, Ear Discharge, Nose Pain, Nose Discharge, Nose Congestion, Mouth Pain, Mouth Swelling, Throat Pain, Throat Swelling, Other Respiratory: negative: Cough, Dry, Shortness of Breath, Hemoptysis, SOB with Excertion, Pleuritic Pain, Sputum, Wheezing Cardiovascular: negative: chest pain, palpitations, orthopnea, paroxysmal nocturnal dyspnea, edema, light headedness, other Gastrointestinal: negative: Nausea, Vomiting, Abdominal Pain, Diarrhea, Constipation, Melena, Hematochezia, Other Genitourinary: negative: Dysuria, Frequency, Incontinence, Hematuria, Retention , Other Musculoskeletal: negative: Neck Pain, Shoulder Pain, Arm Pain, Back Pain, Hand Pain, Leg Pain, Foot Pain, Other - Medications/Allergies Allergies/Adverse Reactions: Allergies Allergy/AdvReac Type Severity Reaction Status Date / Time Penicillins Allergy Severe Verified 12/11/18 20:36 Medications: Current Medications Acetaminophen (Tylenol) 650 mg PO Q4H PRN PRN Reason: Headache/Fever/Mild Pain (1-3) Last Admin: 01/01/19 16:40 Dose: 650 mg Acetaminophen (Tylenol) 650 mg [place] Q6H PRN PRN Reason: Headache/Fever or Pain Albuterol/Ipratropium (Duoneb) 3 ml NEB [id number] [facility] Last Admin: 01/03/19 07:46 Dose: 3 ml Artificial Tears (Tears Naturale) 2 drop EA EYE PRN PRN PRN Reason: Dry Eyes Bisacodyl (Dulcolax) 10 mg [place] DAILYPRN PRN PRN Reason: Constipation Calcium Carbonate (Tums) 1,000 mg PO Q4H PRN PRN Reason: Heartburn or Indigestion Cyanocobalamin (Vitamin B-12) 1,000 mcg PO DAILY [facility] Last Admin: 01/03/19 09:51 Dose: 1,000 mcg Dextrose/Water (Dextrose 50%) 25 gm SLOW IVP PRN PRN PRN Reason: Hypoglycemia Enoxaparin Sodium (Lovenox) 40 mg SC 0900 [facility] Last Admin: 01/03/19 09:52 Dose: 40 mg Famotidine (Pepcid) 20 mg SLOW IVP Q12HR [facility] Last Admin: 01/03/19 09:52 Dose: 20 mg Famotidine (Pepcid) 20 mg PO BID [facility] Last Admin: 01/03/19 09:52 Dose: Not Given Folic Acid (Folvite) 1 mg PO DAILY [facility] Last Admin: 01/03/19 09:52 Dose: 1 mg Glucagon (Glucagon) 1 mg IM PRN PRN PRN Reason: Hypoglycemia Guaifenesin (Robitussin Sf) 200 mg PO Q4H PRN PRN Reason: Cough Hydralazine HCl (Apresoline) 10 mg SLOW IVP Q4H PRN PRN Reason: SBP > 180 and HR < 70 Dextrose/Water (D5w) 1,000 mls @ 0 mls/hr IV .Q0M PRN PRN Reason: Hypoglycemia Sodium Chloride (Normal Saline 0.9%) 1,000 mls @ 75 mls/hr IV .[id number] [facility] Last Admin: 01/03/19 09:58 Dose: 1,000 mls Levofloxacin 750 mg/ Device 150 mls @ 100 mls/hr IVPB Q24HR [facility] Last Admin: 01/03/19 10:11 Dose: 150 mls Vancomycin HCl 1.5 gm/ Sodium (Chloride) 300 mls @ 200 mls/hr IVPB 0900 [facility] Last Admin: 01/03/19 09:51 Dose: 300 mls Insulin Human Lispro (Humalog) 0 units SC .MODERATE SLIDING SC PRN PRN Reason: Moderate Correctional Scale Insulin Human Lispro (Humalog) 0 units SC .BEDTIME SLIDING SC PRN PRN Reason: Bedtime Correctional Scale Ketorolac Tromethamine (Toradol) 15 mg IVP Q6H PRN PRN Reason: Pain Stop: 01/05/19 14:14 Last Admin: 01/02/19 02:31 Dose: 15 mg Loperamide HCl (Imodium) 2 mg PO PRN PRN PRN Reason: Diarrhea/Loose Stools Loratadine (Claritin) 10 mg PO DAILYPRN PRN PRN Reason: Sinus Symptoms Miscellaneous Medication (Pharmacy To Dose) 1 each IVPB [facility] Ondansetron HCl (Zofran Odt) 4 mg PO Q6H PRN PRN Reason: Nausea/Vomiting Ondansetron HCl (Zofran) 4 mg IVP Q6H PRN PRN Reason: Nausea/Vomiting Senna/Docusate Sodium (Senokot S) 2 tab PO BID PRN PRN Reason: Constipation Sodium Chloride ([place] Nasal [place] 0.65%) 0 ml EA NARE QIDPRN PRN PRN Reason: Nasal Congestion Throat Lozenges (Cepastat Lozenges) 1 rambo PO Q2H PRN PRN Reason: Sore Throat
[2019-01-03] MEDS: Acetaminophen 325 MG TAB PO PRN (12:17)
[2019-01-04] MEDS: Sodium Chloride 0.9% 1,000 ML IV SCH (01:08)
[2019-01-04] MEDS: Enoxaparin Sodium 40 MG/0.4 ML SYRINGE SC SCH (08:23)
[2019-01-04] MEDS: Famotidine 20 MG TAB PO SCH ×2 (08:23→20:50)
[2019-01-04] MEDS: Cyanocobalamin (Vitamin B-12) 1,000 MCG TAB PO SCH (08:23)
[2019-01-04] MEDS: Famotidine/PF 20 mg/2ml Vial SLOW IVP SCH ×2 (08:23→20:27)
[2019-01-04] MEDS: Folic Acid 1 MG TAB PO SCH (08:23)
[2019-01-04 08:54] LABS: Vancomycin, Trough 9.3 ug/mL
[2019-01-04] MEDS: Vancomycin HCl 1.5 GM in Sodium Chloride 0.9% 250 ML 300 ML IVPB SCH (09:01)
--- NOTE | 2019-01-04 10:36 | PDOC.PN ---
- Subjective Encounter Start Date: 01/04/19 Encounter Start Time: 08:30 Patient seen and examined. No new complaints. No overnight events - Objective Resuscitation Status - Order Detail: 12/30/18 10:33 Resuscitation Status Routine Resuscitation Status: DNAR: NO Resuscitation Discussed with: discussed with daughter MIRA Reviewed: Yes Vital Signs & Weight: Vital Signs (12 hours) Temp Pulse Resp BP Pulse Ox 01/04/19 08:23 93 L 01/04/19 07:58 99.3 F 74 22 H 169/78 H 93 L 01/04/19 07:03 92 L 01/04/19 07:00 62 24 H 01/04/19 04:27 98.8 F 64 20 147/74 H 93 L 01/03/19 23:38 99.0 F 68 20 152/75 H 96 01/03/19 23:37 94 L Weight Weight 158 lb 11.725 oz I&O: 01/03/19 01/04/19 01/05/19 06:59 06:59 06:59 Intake Total 990 1275 Balance 990 1275 Result Diagrams: 01/03/19 04:25 01/03/19 04:25 Additional Labs: Accuchecks 01/04/19 01/03/19 01/03/19 05:41 20:27 15:34 POC Glucose 85 123 H 125 H Phys Exam - Physical Examination Constitutional: NAD HEENT: PERRLA, moist MMs, sclera anicteric Neck: no JVD, supple Respiratory: no wheezing, no rales, no rhonchi Cardiovascular: RRR, no significant murmur, no rub Gastrointestinal: soft, non-tender, no distention Musculoskeletal: no edema, pulses present Neurological: moves all 4 limbs Lymphatic: no nodes Psychiatric: normal affect Skin: no rash, normal turgor Dx/Plan (1) Acute on chronic respiratory failure with hypoxemia Code(s): J96.21 - ACUTE AND CHRONIC RESPIRATORY FAILURE WITH HYPOXIA Status: Acute (2) Encephalopathy acute Code(s): G93.40 - ENCEPHALOPATHY, UNSPECIFIED Status: Acute Comment: acute on chronic due to sepsis (3) Lactic acidosis Code(s): E87.2 - ACIDOSIS Status: Acute (4) Pneumonia Code(s): J18.9 - PNEUMONIA, UNSPECIFIED ORGANISM Status: Acute Comment: aspiration vs community acquired, empirically treating for GNR (5) Sepsis Code(s): A41.9 - SEPSIS, UNSPECIFIED ORGANISM Status: Acute (6) UTI (urinary tract infection) Status: Acute (7) Diabetes type 2, controlled Code(s): E11.9 - TYPE 2 DIABETES MELLITUS WITHOUT COMPLICATIONS Status: Chronic (8) Macrocytosis Code(s): D75.89 - OTHER SPECIFIED DISEASES OF BLOOD AND BLOOD-FORMING ORGANS Status: Chronic Comment: with anemia (9) Parkinson's disease dementia Code(s): G20 - PARKINSON'S DISEASE; F02.80 - DEMENTIA IN OTH DISEASES CLASSD ELSWHR W/O BEHAVRL DISTURB Status: Chronic - Plan cont current plan of care * medication reviewed as below * symptomatic treatment * dc to home with home hospice. Review of Systems - Review of Systems Other: unable to review due to dementia - Medications/Allergies Allergies/Adverse Reactions: Allergies Allergy/AdvReac Type Severity Reaction Status Date / Time Penicillins Allergy Severe Verified 12/11/18 20:36 Medications: Current Medications Acetaminophen (Tylenol) 650 mg PO Q4H PRN PRN Reason: Headache/Fever/Mild Pain (1-3) Last Admin: 01/03/19 12:17 Dose: 650 mg Acetaminophen (Tylenol) 650 mg [place] Q6H PRN PRN Reason: Headache/Fever or Pain Albuterol/Ipratropium (Duoneb) 3 ml NEB [id number] [facility] Last Admin: 01/04/19 07:00 Dose: 3 ml Artificial Tears (Tears Naturale) 2 drop EA EYE PRN PRN PRN Reason: Dry Eyes Bisacodyl (Dulcolax) 10 mg [place] DAILYPRN PRN PRN Reason: Constipation Calcium Carbonate (Tums) 1,000 mg PO Q4H PRN PRN Reason: Heartburn or Indigestion Cyanocobalamin (Vitamin B-12) 1,000 mcg PO DAILY [facility] Last Admin: 01/04/19 08:23 Dose: 1,000 mcg Dextrose/Water (Dextrose 50%) 25 gm SLOW IVP PRN PRN PRN Reason: Hypoglycemia Enoxaparin Sodium (Lovenox) 40 mg SC 0900 [facility] Last Admin: 01/04/19 08:23 Dose: 40 mg Famotidine (Pepcid) 20 mg SLOW IVP Q12HR [facility] Last Admin: 01/04/19 08:23 Dose: Not Given Famotidine (Pepcid) 20 mg PO BID [facility] Last Admin: 01/04/19 08:23 Dose: 20 mg Folic Acid (Folvite) 1 mg PO DAILY [facility] Last Admin: 01/04/19 08:23 Dose: 1 mg Glucagon (Glucagon) 1 mg IM PRN PRN PRN Reason: Hypoglycemia Guaifenesin (Robitussin Sf) 200 mg PO Q4H PRN PRN Reason: Cough Hydralazine HCl (Apresoline) 10 mg SLOW IVP Q4H PRN PRN Reason: SBP > 180 and HR < 70 Dextrose/Water (D5w) 1,000 mls @ 0 mls/hr IV .Q0M PRN PRN Reason: Hypoglycemia Levofloxacin 750 mg/ Device 150 mls @ 100 mls/hr IVPB Q24HR [facility] Last Admin: 01/03/19 10:11 Dose: 150 mls Vancomycin HCl 1.5 gm/ Sodium (Chloride) 300 mls @ 200 mls/hr IVPB 0900 [facility] Last Admin: 01/04/19 09:01 Dose: 300 mls Insulin Human Lispro (Humalog) 0 units SC .MODERATE SLIDING SC PRN PRN Reason: Moderate Correctional Scale Insulin Human Lispro (Humalog) 0 units SC .BEDTIME SLIDING SC PRN PRN Reason: Bedtime Correctional Scale Ketorolac Tromethamine (Toradol) 15 mg IVP Q6H PRN PRN Reason: Pain Stop: 01/05/19 14:14 Last Admin: 01/02/19 02:31 Dose: 15 mg Loperamide HCl (Imodium) 2 mg PO PRN PRN PRN Reason: Diarrhea/Loose Stools Loratadine (Claritin) 10 mg PO DAILYPRN PRN PRN Reason: Sinus Symptoms Miscellaneous Medication (Pharmacy To Dose) 1 each IVPB ASDIR [facility] Ondansetron HCl (Zofran Odt) 4 mg PO Q6H PRN PRN Reason: Nausea/Vomiting Ondansetron HCl (Zofran) 4 mg IVP Q6H PRN PRN Reason: Nausea/Vomiting Senna/Docusate Sodium (Senokot S) 2 tab PO BID PRN PRN Reason: Constipation Sodium Chloride ([place] Nasal [place] 0.65%) 0 ml EA NARE QIDPRN PRN PRN Reason: Nasal Congestion Throat Lozenges (Cepastat Lozenges) 1 rambo PO Q2H PRN PRN Reason: Sore Throat
--- NOTE | 2019-01-04 12:02 | RAD ---
SINGLE VIEW OF THE CHEST: COMPARISON: 12/30/2018. HISTORY: Fever. FINDINGS: A single view of the chest shows an enlarged cardiomediastinal silhouette. The patient is status pos t sternotomy. Bilateral perihilar fullness is seen. There may be infiltrates in the left lower lobe . IMPRESSION: 1. Pulmonary vascular congestion. 2. Possible left lower lobe infiltrate. POS: [facility]
[2019-01-04] MEDS: MEROPENEM 1 GM/50 ML 1 GM in Premix Bag 1 BAG IVPB SCH ×2 (15:35→22:52)
--- NOTE | 2019-01-04 16:11 | CON ---
DATE OF CONSULTATION: 01/04/2019 REASON FOR CONSULTATION: Fever, advanced Parkinson disease, and pneumonia. HISTORY OF PRESENT ILLNESS: An 88-year-old with history of advanced Parkinson disease, swallowing dysfunction, some element of dementia, and type 2 diabetes, who had at a hospital do not resuscitate and had been on hospice before, but he lives with his , who has pretty advanced rheumatoid arthritis and despite of the helper every time that he decompensates, she calls the ambulance, so he ended up in the hospital this time again and has been given antimicrobials and continues to have fever despite the levofloxacin. At this point, he is awake. He is able to answer some questions, but very limited output. He does appear to be in distress. According to the nurse, he has not had diarrhea, a little bit constipated. He has been very constipated in the past, required mechanical disimpaction in the past. He has had some evidence of aspiration with choking when he drinks. PAST MEDICAL HISTORY: Includes advanced Parkinson disease, prior aspiration pneumonia, dementia, hypertension, type 2 diabetes, coronary artery disease, chronic respiratory failure with home O2, non-Hodgkin's lymphoma, GERD, and moderate aortic regurgitation. PAST SURGICAL HISTORY: Bypass graft surgery x4, appendectomy, colonoscopy, and inguinal hernia repair. ALLERGIES: PENICILLIN. SOCIAL HISTORY: , had been living with . Had been on hospice care. Never smoker. FAMILY HISTORY: Noncontributory. CURRENT MEDICATION: Had been on levofloxacin. Now, he is on; 1. Meropenem. 2. Tylenol. 3. DuoNeb. 4. Tears Naturale. 5. Dulcolax. 6. Tums. 7. Vitamin B12. 8. Famotidine. 9. Pepcid. 10. Folvite. 11. Insulin. 12. Toradol. 13. Claritin. 14. Ondansetron. 15. Vancomycin. PHYSICAL EXAMINATION: VITAL SIGNS: T-max 100.6, blood pressure 150/71, pulse 78, respirations 24, and O2 saturation 98. SKIN: Area of slight erythema in the intergluteal region. Peripheral IV access. GENITOURINARY: He has voided spontaneously. GENERAL: The patient keeps his eyes open. He does establish eye contact and answer some simple questions. HEENT: Oral cavity with teeth only in the inferior mandible. Oral mucosa is normal. NECK: There is no lymphadenopathy. No jugular vein distention. LUNGS: With diminished breath sounds in the right lower lung. HEART: S1 and S2. Diminished heart sounds. No murmurs. No S3. Regular rate. ABDOMEN: Soft, not distended or tender. No bladder distention. No organomegaly or ascites. EXTREMITIES: Diffuse stiffness. No clonus. Plantar responses are flexor. Pulses 1+ in dorsalis pedis. No edema. NEUROLOGIC: His cognitive function is again limited. He cannot reply to questions regarding orientation. Pretty much just monosyllabic answers to questions regarding presence of pain and so on, but accuracy very limited. LABORATORY DATA: White cell count was 11 down to 5.2, hemoglobin 11.4, and platelets 147. Chemistries; sodium 138, creatinine 0.67. Urinalysis with 21 to 50 wbc's. Urine culture, no growth in 48 hours. IMAGING DATA: Chest x-ray on admission with no infiltrates, now there is left lower lobe infiltrate. ASSESSMENT AND PLAN: Advanced Parkinson disease with likely aspiration pneumonia. We will broaden spectrum to meropenem. I discussed extensively future management regarding his admission to hospice care. I have advised the family to admit him back to home with [facility] since they offer both home visits as well as inpatient hospice if needed. I do not think he will have a critical impending in the next few days to weeks and he seems to prefer to be at home and I think that is probably the more reasonable thing to do at this point in time. In terms of the antimicrobial therapy once there is defervescence, I would not continue it for more than a few days like 2 or 3 days after the antimicrobials were started. I then managed with hospice team consultation every single time that there is a decompensation to avoid the patient being brought back to the emergency room. Job ID: [id number]
--- NOTE | 2019-01-04 17:00 | ULT ---
BILATERAL LOWER EXTREMITY VENOUS DUPLEX EXAM: Date: 01/04/19 HISTORY: Bilateral lower extremity pain, immobility. FINDINGS: Real-time color Doppler of right and left lower extremity was performed from groin to calf. This incl udes evaluation of the common femoral, superficial and profunda femoral, saphenous, popliteal, and po sterior tibial veins. This shows patent deep venous systems bilaterally. There is normal compressibil ity and augmentation. There is no evidence of deep venous thrombosis. IMPRESSION: No evidence of deep venous thrombosis of either lower extremity. POS: [facility]
[2019-01-04] MEDS: Vancomycin HCl 1 GM in Premix Bag 1 BAG IVPB SCH (20:27)
[2019-01-05] MEDS ORDERED: Labetalol HCl 100 MG/20 ML VIAL SLOW IVP SCH (03:45)
[2019-01-05] MEDS: Diltiazem 125 MG in Sodium Chloride 0.9% 100 ML IVPB SCH ×2 (05:30→08:53)
[2019-01-05] MEDS: MEROPENEM 1 GM/50 ML 1 GM in Premix Bag 1 BAG IVPB SCH ×3 (06:11→22:44)
[2019-01-05] MEDS ORDERED: Diltiazem 125 MG in Sodium Chloride 0.9% 100 ML IVPB SCH ×2 (06:13→10:11)
[2019-01-05 07:18] LABS: #Lymphocytes 0.9 thou/uL (1.20-3.40); #Monocytes 0.8 thou/uL (0.11-0.59); #Neutrophils 4.7 thou/uL (1.40-6.50); %Basophils 0.2 % (0.0-1.0); %Eosinophils 0.8 % (0.0-10.0); %Lymphocytes 13.2 % (21.0-51.0); %Neutrophils 72.9 % (42.0-75.0); Hemoglobin 12.7 g/dL (14.0-18.0); Mean Corpuscular HGB CONC 32.5 g/dL (32.0-36.0); Mean Corpuscular Hemoglobin 33.2 pg (27.0-31.0); Mean Platelet Volume 7.6 fL (7.4-10.4); Platelet Count 147 thou/uL (130-400); Red Blood Cell (RBC) Count 3.81 mill/uL (4.70-6.10); White Blood Cell (WBC) Count 6.5 thou/uL (4.8-10.8)
[2019-01-05 07:44] LABS: Anion Gap 13 mmol/L (10-20); BUN (Urea Nitrogen) 5 mg/dL (8.4-25.7); Calc. Creatinine Clearance 78 mL/min (70-130); Calcium 8.8 mg/dL (7.8-10.44); Carbon Dioxide 27 mmol/L (23-31); Chloride 100 mmol/L (98-107); Estimated GFR-MDRD Greater than 90; Glucose 103 mg/dL (83-110); Sodium 137 mmol/L (136-145)
[2019-01-05 07:53] LABS: Potassium 2.8 mmol/L (3.5-5.1)
[2019-01-05] MEDS ORDERED: Potassium Chloride 20 MEQ TAB PO SCH ×2 (08:15→09:45)
[2019-01-05] MEDS ORDERED: Potassium Chloride 20 MEQ in Premix Bag 1 BAG IVPB SCH (08:15)
[2019-01-05] MEDS: Aspirin Chewable 81 MG TAB PO SCH (08:22)
[2019-01-05] MEDS: Enoxaparin Sodium 40 MG/0.4 ML SYRINGE SC SCH (08:23)
[2019-01-05] MEDS: Famotidine/PF 20 mg/2ml Vial SLOW IVP SCH ×2 (08:23→20:27)
[2019-01-05] MEDS: Cyanocobalamin (Vitamin B-12) 1,000 MCG TAB PO SCH (08:23)
[2019-01-05] MEDS: Folic Acid 1 MG TAB PO SCH (08:23)
[2019-01-05] MEDS: Vancomycin HCl 1 GM in Premix Bag 1 BAG IVPB SCH ×2 (08:24→20:28)
[2019-01-05] MEDS: Famotidine 20 MG TAB PO SCH ×2 (09:00→22:44)
[2019-01-05 09:20] LABS: Magnesium 1.5 mg/dL (1.6-2.6)
[2019-01-05] MEDS ORDERED: Digoxin 0.5 MG/2 ML AMP SLOW IVP SCH (10:15)
[2019-01-05] MEDS ORDERED: Magnesium Sulfate 3 GM in Sodium Chloride 0.9% 100 ML IVPB SCH (10:15)
--- NOTE | 2019-01-05 12:04 | PDOC.PN ---
- Subjective Encounter Start Date: 01/05/19 Encounter Start Time: 07:10 pt was transferred to [facility], for afib with RVR, daughter bedside and asking for hospice for inpt evaluation - Objective Resuscitation Status - Order Detail: 12/30/18 10:33 Resuscitation Status Routine Resuscitation Status: DNAR: NO Resuscitation Discussed with: discussed with daughter MIRA Reviewed: Yes Vital Signs & Weight: Vital Signs (12 hours) Temp Pulse Resp BP BP Pulse Ox 01/05/19 11:24 109 H 01/05/19 11:00 98.2 F 140 H 18 99/71 94 L 01/05/19 07:59 100.6 F H 120 H 20 125/82 94 L 01/05/19 07:31 92 L 01/05/19 07:27 120 H 20 92 L 01/05/19 05:00 99.3 F 125 H 20 124/85 92 L 01/05/19 04:10 136 H 129/76 98 01/05/19 03:45 135 H 01/05/19 03:41 72 155/80 H 01/05/19 03:30 99.6 F 165 H 155/80 H 98 01/05/19 02:00 72 18 100 Weight Weight 158 lb 11.725 oz I&O: 01/04/19 01/05/19 01/06/19 06:59 06:59 06:59 Intake Total 1275 1350 Balance 1275 1350 Result Diagrams: 01/05/19 07:11 01/05/19 07:11 Additional Labs: Accuchecks 01/05/19 01/04/19 01/04/19 05:54 20:45 16:09 POC Glucose 99 104 128 H EKG Reviewed by me: Yes (afib) Phys Exam - Physical Examination Constitutional: NAD HEENT: PERRLA, moist MMs, sclera anicteric Neck: no JVD, supple Respiratory: no wheezing, no rales, no rhonchi Cardiovascular: no significant murmur, irregular Gastrointestinal: soft, non-tender, no distention, positive bowel sounds Musculoskeletal: no edema, pulses present Neurological: non-focal Lymphatic: no nodes Psychiatric: normal affect Skin: no rash, normal turgor Dx/Plan (1) Acute on chronic respiratory failure with hypoxemia Code(s): J96.21 - ACUTE AND CHRONIC RESPIRATORY FAILURE WITH HYPOXIA Status: Acute (2) Encephalopathy acute Code(s): G93.40 - ENCEPHALOPATHY, UNSPECIFIED Status: Acute Comment: acute on chronic due to sepsis (3) Lactic acidosis Code(s): E87.2 - ACIDOSIS Status: Acute (4) Pneumonia Code(s): J18.9 - PNEUMONIA, UNSPECIFIED ORGANISM Status: Acute Comment: aspiration vs community acquired, empirically treating for GNR (5) Sepsis Code(s): A41.9 - SEPSIS, UNSPECIFIED ORGANISM Status: Acute (6) UTI (urinary tract infection) Status: Acute (7) Diabetes type 2, controlled Code(s): E11.9 - TYPE 2 DIABETES MELLITUS WITHOUT COMPLICATIONS Status: Chronic (8) Macrocytosis Code(s): D75.89 - OTHER SPECIFIED DISEASES OF BLOOD AND BLOOD-FORMING ORGANS Status: Chronic Comment: with anemia (9) Parkinson's disease dementia Code(s): G20 - PARKINSON'S DISEASE; F02.80 - DEMENTIA IN OTH DISEASES CLASSD ELSWHR W/O BEHAVRL DISTURB Status: Chronic - Plan cont current plan of care, plan discussed w/ family, continue antibiotics, social media job titles * ID recommendation noted * continue meropenam and vancomycin * discussed with daughter * rn case manager for inpt hospice evaluation * reduce cardizem drip 5 mg * give lasix 20 mg iv bid * give digoxin 0.250 mcg iv one time * medication reviewed as below * symptomatic treatment. Review of Systems - Review of Systems Other: not reliable due to dementia - Medications/Allergies Allergies/Adverse Reactions: Allergies Allergy/AdvReac Type Severity Reaction Status Date / Time Penicillins Allergy Severe Verified 12/11/18 20:36 Medications: Current Medications Acetaminophen (Tylenol) 650 mg PO Q4H PRN PRN Reason: Headache/Fever/Mild Pain (1-3) Last Admin: 01/03/19 12:17 Dose: 650 mg Acetaminophen (Tylenol) 650 mg [place] Q6H PRN PRN Reason: Headache/Fever or Pain Albuterol/Ipratropium (Duoneb) 3 ml NEB [id number] [facility] Last Admin: 01/05/19 07:27 Dose: 3 ml Artificial Tears (Tears Naturale) 2 drop EA EYE PRN PRN PRN Reason: Dry Eyes Aspirin (Aspirin Chewable) 81 mg PO DAILY [facility] Last Admin: 01/05/19 08:22 Dose: 81 mg Bisacodyl (Dulcolax) 10 mg TN DAILYPRN PRN PRN Reason: Constipation Calcium Carbonate (Tums) 1,000 mg PO Q4H PRN PRN Reason: Heartburn or Indigestion Cyanocobalamin (Vitamin B-12) 1,000 mcg PO DAILY [facility] Last Admin: 01/05/19 08:23 Dose: 1,000 mcg Dextrose/Water (Dextrose 50%) 25 gm SLOW IVP PRN PRN PRN Reason: Hypoglycemia Enoxaparin Sodium (Lovenox) 40 mg SC 0900 [facility] Last Admin: 01/05/19 08:23 Dose: 40 mg Famotidine (Pepcid) 20 mg SLOW IVP Q12HR [facility] Last Admin: 01/05/19 08:23 Dose: 20 mg Famotidine (Pepcid) 20 mg PO BID [facility] Last Admin: 01/05/19 09:00 Dose: Not Given Folic Acid (Folvite) 1 mg PO DAILY [facility] Last Admin: 01/05/19 08:23 Dose: 1 mg Furosemide (Lasix) 20 mg SLOW IVP 0600,1400 [facility] Glucagon (Glucagon) 1 mg IM PRN PRN PRN Reason: Hypoglycemia Guaifenesin (Robitussin Sf) 200 mg PO Q4H PRN PRN Reason: Cough Hydralazine HCl (Apresoline) 10 mg SLOW IVP Q4H PRN PRN Reason: SBP > 180 and HR < 70 Dextrose/Water (D5w) 1,000 mls @ 0 mls/hr IV .Q0M PRN PRN Reason: Hypoglycemia Vancomycin HCl 1 gm/ Device 200 mls @ 200 mls/hr IVPB 0900,2100 [facility] Last Admin: 01/05/19 08:24 Dose: 200 mls Meropenem 1 gm/ Device 50 mls @ 100 mls/hr IVPB Q8HR [facility] Last Admin: 01/05/19 06:11 Dose: 50 mls Diltiazem HCl 125 mg/ Sodium (Chloride) 125 mls @ 5 mls/hr IVPB INF [facility]; Protocol Insulin Human Lispro (Humalog) 0 units SC .MODERATE SLIDING SC PRN PRN Reason: Moderate Correctional Scale Insulin Human Lispro (Humalog) 0 units SC .BEDTIME SLIDING SC PRN PRN Reason: Bedtime Correctional Scale Ketorolac Tromethamine (Toradol) 15 mg IVP Q6H PRN PRN Reason: Pain Stop: 01/05/19 14:14 Last Admin: 01/02/19 02:31 Dose: 15 mg Loperamide HCl (Imodium) 2 mg PO PRN PRN PRN Reason: Diarrhea/Loose Stools Loratadine (Claritin) 10 mg PO DAILYPRN PRN PRN Reason: Sinus Symptoms Miscellaneous Medication (Pharmacy To Dose) 1 each IVPB ASDIR [facility] Ondansetron HCl (Zofran Odt) 4 mg PO Q6H PRN PRN Reason: Nausea/Vomiting Ondansetron HCl (Zofran) 4 mg IVP Q6H PRN PRN Reason: Nausea/Vomiting Senna/Docusate Sodium (Senokot S) 2 tab PO BID PRN PRN Reason: Constipation Sodium Chloride ([place] Nasal [place] 0.65%) 0 ml EA NARE QIDPRN PRN PRN Reason: Nasal Congestion Sodium Chloride (Flush - Normal Saline) 10 ml IVF Q12HR [facility] Last Admin: 01/05/19 08:24 Dose: 10 ml Sodium Chloride (Flush - Normal Saline) 10 ml IVF PRN PRN PRN Reason: Saline Flush Throat Lozenges (Cepastat Lozenges) 1 rambo PO Q2H PRN PRN Reason: Sore Throat
[2019-01-05] MEDS: Furosemide 20 MG/2 ML VIAL SLOW IVP SCH (14:10)
[2019-01-05] MEDS: Acetaminophen 650 MG Suppository PR PRN (23:48)
[2019-01-06] MEDS: MEROPENEM 1 GM/50 ML 1 GM in Premix Bag 1 BAG IVPB SCH ×2 (06:00→14:21)
[2019-01-06] MEDS: Furosemide 20 MG/2 ML VIAL SLOW IVP SCH ×2 (06:00→14:18)
[2019-01-06] MEDS: Vancomycin HCl 1 GM in Premix Bag 1 BAG IVPB SCH (09:12)
[2019-01-06] MEDS: Famotidine 20 MG TAB PO SCH ×2 (09:14→20:37)
[2019-01-06] MEDS: Famotidine/PF 20 mg/2ml Vial SLOW IVP SCH ×2 (09:15→20:36)
[2019-01-06] MEDS: Cyanocobalamin (Vitamin B-12) 1,000 MCG TAB PO SCH (09:15)
[2019-01-06] MEDS: Enoxaparin Sodium 40 MG/0.4 ML SYRINGE SC SCH (09:15)
[2019-01-06] MEDS: Folic Acid 1 MG TAB PO SCH (09:15)
[2019-01-06] MEDS: Aspirin Chewable 81 MG TAB PO SCH (09:15)
--- NOTE | 2019-01-06 14:53 | PDOC.PN ---
- Subjective Encounter Start Date: 01/06/19 Encounter Start Time: 10:15 Patient seen and examined. No new complaints. No overnight events - Objective Resuscitation Status - Order Detail: 12/30/18 10:33 Resuscitation Status Routine Resuscitation Status: DNAR: NO Resuscitation Discussed with: discussed with daughter MIRA Reviewed: Yes Vital Signs & Weight: Vital Signs (12 hours) Temp Pulse Resp BP Pulse Ox 01/06/19 12:46 75 16 92 L 01/06/19 11:52 98.5 F 81 16 135/90 92 L 01/06/19 08:00 98.2 F 87 18 155/86 H 92 L 01/06/19 06:32 92 L 01/06/19 06:30 71 16 91 L 01/06/19 03:24 98 F 80 20 136/76 93 L Weight Weight 158 lb 11.725 oz I&O: 01/05/19 01/06/19 01/07/19 06:59 06:59 06:59 Intake Total 1350 740 600 Balance 1350 740 600 Result Diagrams: 01/05/19 07:11 01/05/19 07:11 Additional Labs: Accuchecks 01/05/19 21:47 POC Glucose 158 H EKG Reviewed by me: Yes Phys Exam - Physical Examination Constitutional: NAD HEENT: moist MMs Neck: no JVD, supple Respiratory: no wheezing, no rales, no rhonchi Cardiovascular: no significant murmur Gastrointestinal: soft, non-tender, no distention Musculoskeletal: no edema, pulses present Neurological: moves all 4 limbs Lymphatic: no nodes Skin: no rash, normal turgor Dx/Plan (1) Acute on chronic respiratory failure with hypoxemia Code(s): J96.21 - ACUTE AND CHRONIC RESPIRATORY FAILURE WITH HYPOXIA Status: Acute (2) Encephalopathy acute Code(s): G93.40 - ENCEPHALOPATHY, UNSPECIFIED Status: Acute Comment: acute on chronic due to sepsis (3) Lactic acidosis Code(s): E87.2 - ACIDOSIS Status: Acute (4) Pneumonia Code(s): J18.9 - PNEUMONIA, UNSPECIFIED ORGANISM Status: Acute Comment: aspiration vs community acquired, empirically treating for GNR (5) Sepsis Code(s): A41.9 - SEPSIS, UNSPECIFIED ORGANISM Status: Acute (6) UTI (urinary tract infection) Status: Acute (7) Diabetes type 2, controlled Code(s): E11.9 - TYPE 2 DIABETES MELLITUS WITHOUT COMPLICATIONS Status: Chronic (8) Macrocytosis Code(s): D75.89 - OTHER SPECIFIED DISEASES OF BLOOD AND BLOOD-FORMING ORGANS Status: Chronic Comment: with anemia (9) Parkinson's disease dementia Code(s): G20 - PARKINSON'S DISEASE; F02.80 - DEMENTIA IN OTH DISEASES CLASSD ELSWHR W/O BEHAVRL DISTURB Status: Chronic - Plan cont current plan of care, continue antibiotics, social media assistant, respiratory therapy * continue meropenam and vancomycin * medication reviewed as below * symptomatic treatment. * hospice evaluation for inpt * discharge soon * prognosis poor. Review of Systems - Review of Systems Other: not reliable due to dementia - Medications/Allergies Allergies/Adverse Reactions: Allergies Allergy/AdvReac Type Severity Reaction Status Date / Time Penicillins Allergy Severe Verified 12/11/18 20:36 Medications: Current Medications Acetaminophen (Tylenol) 650 mg PO Q4H PRN PRN Reason: Headache/Fever/Mild Pain (1-3) Last Admin: 01/03/19 12:17 Dose: 650 mg Acetaminophen (Tylenol) 650 mg PA Q6H PRN PRN Reason: Headache/Fever or Pain Last Admin: 01/05/19 23:48 Dose: 650 mg Albuterol/Ipratropium (Duoneb) 3 ml NEB [id number] [facility] Last Admin: 01/06/19 12:46 Dose: 3 ml Artificial Tears (Tears Naturale) 2 drop EA EYE PRN PRN PRN Reason: Dry Eyes Aspirin (Aspirin Chewable) 81 mg PO DAILY [facility] Last Admin: 01/06/19 09:15 Dose: 81 mg Bisacodyl (Dulcolax) 10 mg PA DAILYPRN PRN PRN Reason: Constipation Calcium Carbonate (Tums) 1,000 mg PO Q4H PRN PRN Reason: Heartburn or Indigestion Cyanocobalamin (Vitamin B-12) 1,000 mcg PO DAILY [facility] Last Admin: 01/06/19 09:15 Dose: 1,000 mcg Dextrose/Water (Dextrose 50%) 25 gm SLOW IVP PRN PRN PRN Reason: Hypoglycemia Enoxaparin Sodium (Lovenox) 40 mg SC 0900 [facility] Last Admin: 01/06/19 09:15 Dose: 40 mg Famotidine (Pepcid) 20 mg SLOW IVP Q12HR [facility] Last Admin: 01/06/19 09:15 Dose: 20 mg Famotidine (Pepcid) 20 mg PO BID [facility] Last Admin: 01/06/19 09:14 Dose: Not Given Folic Acid (Folvite) 1 mg PO DAILY [facility] Last Admin: 01/06/19 09:15 Dose: 1 mg Furosemide (Lasix) 20 mg SLOW IVP 0600,1400 [facility] Last Admin: 01/06/19 14:18 Dose: 20 mg Glucagon (Glucagon) 1 mg IM PRN PRN PRN Reason: Hypoglycemia Guaifenesin (Robitussin Sf) 200 mg PO Q4H PRN PRN Reason: Cough Hydralazine HCl (Apresoline) 10 mg SLOW IVP Q4H PRN PRN Reason: SBP > 180 and HR < 70 Dextrose/Water (D5w) 1,000 mls @ 0 mls/hr IV .Q0M PRN PRN Reason: Hypoglycemia Vancomycin HCl 1 gm/ Device 200 mls @ 200 mls/hr IVPB 0900,2100 [facility] Last Admin: 01/06/19 09:12 Dose: 200 mls Meropenem 1 gm/ Device 50 mls @ 100 mls/hr IVPB Q8HR [facility] Last Admin: 01/06/19 14:21 Dose: 50 mls Insulin Human Lispro (Humalog) 0 units SC .MODERATE SLIDING SC PRN PRN Reason: Moderate Correctional Scale Insulin Human Lispro (Humalog) 0 units SC .BEDTIME SLIDING SC PRN PRN Reason: Bedtime Correctional Scale Loperamide HCl (Imodium) 2 mg PO PRN PRN PRN Reason: Diarrhea/Loose Stools Loratadine (Claritin) 10 mg PO DAILYPRN PRN PRN Reason: Sinus Symptoms Miscellaneous Medication (Pharmacy To Dose) 1 each IVPB ASDIR [facility] Ondansetron HCl (Zofran Odt) 4 mg PO Q6H PRN PRN Reason: Nausea/Vomiting Ondansetron HCl (Zofran) 4 mg IVP Q6H PRN PRN Reason: Nausea/Vomiting Senna/Docusate Sodium (Senokot S) 2 tab PO BID PRN PRN Reason: Constipation Sodium Chloride ([place] Nasal [place] 0.65%) 0 ml EA NARE QIDPRN PRN PRN Reason: Nasal Congestion Sodium Chloride (Flush - Normal Saline) 10 ml IVF Q12HR [facility] Last Admin: 01/06/19 09:14 Dose: 10 ml Sodium Chloride (Flush - Normal Saline) 10 ml IVF PRN PRN PRN Reason: Saline Flush Last Admin: 01/06/19 06:00 Dose: 10 ml Throat Lozenges (Cepastat Lozenges) 1 rambo PO Q2H PRN PRN Reason: Sore Throat
[2019-01-06] MEDS: Acetaminophen 650 MG Suppository PR PRN (16:05)
[2019-01-07] MEDS: Furosemide 20 MG/2 ML VIAL SLOW IVP SCH ×2 (05:54→14:39)
[2019-01-07 08:36] VITALS: TEMP 98.5
[2019-01-07] MEDS: Enoxaparin Sodium 40 MG/0.4 ML SYRINGE SC SCH (10:13)
[2019-01-07] MEDS: Folic Acid 1 MG TAB PO SCH (10:13)
[2019-01-07] MEDS: Famotidine 20 MG TAB PO SCH (10:13)
[2019-01-07] MEDS: Aspirin Chewable 81 MG TAB PO SCH (10:13)
[2019-01-07] MEDS: Cyanocobalamin (Vitamin B-12) 1,000 MCG TAB PO SCH (10:13)
[2019-01-07] MEDS: Famotidine/PF 20 mg/2ml Vial SLOW IVP SCH (10:14)
--- NOTE | 2019-01-07 10:30 | PDOC.PN ---
- Subjective Encounter Start Date: 01/07/19 Encounter Start Time: 07:15 Patient seen and examined. No new complaints. No overnight events - Objective Resuscitation Status - Order Detail: 12/30/18 10:33 Resuscitation Status Routine Resuscitation Status: DNAR: NO Resuscitation Discussed with: discussed with daughter MIRA Reviewed: Yes Vital Signs & Weight: Vital Signs (12 hours) Temp Pulse Resp BP Pulse Ox 01/07/19 08:00 98.5 F 72 18 125/81 92 L 01/07/19 07:34 94 L 01/07/19 07:33 82 16 94 L 01/07/19 06:01 98.3 F 01/07/19 04:00 99.1 F 77 16 121/78 92 L 01/06/19 23:00 98.4 F 85 16 97/56 L 92 L 01/06/19 22:42 94 L 01/06/19 22:40 94 L Weight Weight 158 lb 11.725 oz I&O: 01/06/19 01/07/19 01/08/19 06:59 06:59 06:59 Intake Total 740 930 Balance 740 930 Result Diagrams: 01/05/19 07:11 01/05/19 07:11 Phys Exam - Physical Examination Constitutional: NAD HEENT: moist MMs, sclera anicteric Neck: no JVD, supple Respiratory: no wheezing, no rales, no rhonchi Cardiovascular: no significant murmur, irregular Gastrointestinal: soft, non-tender, no distention Musculoskeletal: no edema, pulses present Neurological: non-focal Lymphatic: no nodes Psychiatric: normal affect Skin: no rash, normal turgor Dx/Plan (1) Acute on chronic respiratory failure with hypoxemia Code(s): J96.21 - ACUTE AND CHRONIC RESPIRATORY FAILURE WITH HYPOXIA Status: Acute (2) Encephalopathy acute Code(s): G93.40 - ENCEPHALOPATHY, UNSPECIFIED Status: Acute Comment: acute on chronic due to sepsis (3) Lactic acidosis Code(s): E87.2 - ACIDOSIS Status: Acute (4) Pneumonia Code(s): J18.9 - PNEUMONIA, UNSPECIFIED ORGANISM Status: Acute Comment: aspiration vs community acquired, empirically treating for GNR (5) Sepsis Code(s): A41.9 - SEPSIS, UNSPECIFIED ORGANISM Status: Acute (6) UTI (urinary tract infection) Status: Acute (7) Diabetes type 2, controlled Code(s): E11.9 - TYPE 2 DIABETES MELLITUS WITHOUT COMPLICATIONS Status: Chronic (8) Macrocytosis Code(s): D75.89 - OTHER SPECIFIED DISEASES OF BLOOD AND BLOOD-FORMING ORGANS Status: Chronic Comment: with anemia (9) Parkinson's disease dementia Code(s): G20 - PARKINSON'S DISEASE; F02.80 - DEMENTIA IN OTH DISEASES CLASSD ELSWHR W/O BEHAVRL DISTURB Status: Chronic - Plan cont current plan of care * medication reviewed as below * symptomatic treatment * see my discharge georgegiovanni. Review of Systems - Review of Systems Other: not reliable due to dementia - Medications/Allergies Allergies/Adverse Reactions: Allergies Allergy/AdvReac Type Severity Reaction Status Date / Time Penicillins Allergy Severe Verified 12/11/18 20:36 Medications: Current Medications Acetaminophen (Tylenol) 650 mg PO Q4H PRN PRN Reason: Headache/Fever/Mild Pain (1-3) Last Admin: 01/03/19 12:17 Dose: 650 mg Acetaminophen (Tylenol) 650 mg [place] Q6H PRN PRN Reason: Headache/Fever or Pain Last Admin: 01/06/19 16:05 Dose: 650 mg Albuterol/Ipratropium (Duoneb) 3 ml NEB [id number] [facility] Last Admin: 01/07/19 07:33 Dose: 3 ml Artificial Tears (Tears Naturale) 2 drop EA EYE PRN PRN PRN Reason: Dry Eyes Aspirin (Aspirin Chewable) 81 mg PO DAILY [facility] Last Admin: 01/06/19 09:15 Dose: 81 mg Bisacodyl (Dulcolax) 10 mg [place] DAILYPRN PRN PRN Reason: Constipation Calcium Carbonate (Tums) 1,000 mg PO Q4H PRN PRN Reason: Heartburn or Indigestion Cyanocobalamin (Vitamin B-12) 1,000 mcg PO DAILY [facility] Last Admin: 01/06/19 09:15 Dose: 1,000 mcg Dextrose/Water (Dextrose 50%) 25 gm SLOW IVP PRN PRN PRN Reason: Hypoglycemia Enoxaparin Sodium (Lovenox) 40 mg SC 0900 [facility] Last Admin: 01/06/19 09:15 Dose: 40 mg Famotidine (Pepcid) 20 mg SLOW IVP Q12HR [facility] Last Admin: 01/06/19 20:36 Dose: 20 mg Famotidine (Pepcid) 20 mg PO BID [facility] Last Admin: 01/06/19 20:37 Dose: Not Given Folic Acid (Folvite) 1 mg PO DAILY [facility] Last Admin: 01/06/19 09:15 Dose: 1 mg Furosemide (Lasix) 20 mg SLOW IVP 0600,1400 [facility] Last Admin: 01/07/19 05:54 Dose: 20 mg Glucagon (Glucagon) 1 mg IM PRN PRN PRN Reason: Hypoglycemia Guaifenesin (Robitussin Sf) 200 mg PO Q4H PRN PRN Reason: Cough Hydralazine HCl (Apresoline) 10 mg SLOW IVP Q4H PRN PRN Reason: SBP > 180 and HR < 70 Dextrose/Water (D5w) 1,000 mls @ 0 mls/hr IV .Q0M PRN PRN Reason: Hypoglycemia Insulin Human Lispro (Humalog) 0 units SC .MODERATE SLIDING SC PRN PRN Reason: Moderate Correctional Scale Insulin Human Lispro (Humalog) 0 units SC .BEDTIME SLIDING SC PRN PRN Reason: Bedtime Correctional Scale Loperamide HCl (Imodium) 2 mg PO PRN PRN PRN Reason: Diarrhea/Loose Stools Loratadine (Claritin) 10 mg PO DAILYPRN PRN PRN Reason: Sinus Symptoms Ondansetron HCl (Zofran Odt) 4 mg PO Q6H PRN PRN Reason: Nausea/Vomiting Ondansetron HCl (Zofran) 4 mg IVP Q6H PRN PRN Reason: Nausea/Vomiting Senna/Docusate Sodium (Senokot S) 2 tab PO BID PRN PRN Reason: Constipation Sodium Chloride ([place] Nasal [place] 0.65%) 0 ml EA NARE QIDPRN PRN PRN Reason: Nasal Congestion Sodium Chloride (Flush - Normal Saline) 10 ml IVF Q12HR [facility] Last Admin: 01/06/19 20:37 Dose: 10 ml Sodium Chloride (Flush - Normal Saline) 10 ml IVF PRN PRN PRN Reason: Saline Flush Last Admin: 01/06/19 06:00 Dose: 10 ml Throat Lozenges (Cepastat Lozenges) 1 rambo PO Q2H PRN PRN Reason: Sore Throat
--- NOTE | 2019-01-07 10:34 | PDOC.PALFU ---
Palliative Care Follow-up Note Patient in bed, awake, aphasic but does make eye contact. Daughter at bedside. Daughter states they home to transfer patient to [facility] swing bed today. Family concerned that he requires too much assistance to be at home and would like to transition to the local hospital. The family states that if the patient is able to in the future to transfer back home with [facility], but concern remains with patient continued decline and patients ability to care for him at home even with assistance. [facility] present and discussed family wishes with her.
--- NOTE | 2019-01-07 10:34 | DIS ---
DATE OF ADMISSION: 12/30/2018 DATE OF DISCHARGE: 01/07/2019 PRIMARY CARE PHYSICIAN: Lamonte Yee MD DISCHARGE DISPOSITION: Hospice. PRIMARY DISCHARGE DIAGNOSES: Acute on chronic respiratory failure with hypoxia, acute on chronic encephalopathy, hypokalemia, lactic acidosis, aspiration pneumonia, sepsis with acute organ dysfunction, urinary tract infection, and hypomagnesemia. SECONDARY DISCHARGE DIAGNOSES: Diabetes type 2, macrocytic anemia, Parkinson disease, advanced dementia, and chronic respiratory failure with hypoxia, on home oxygen. PRIMARY PROCEDURE/OPERATION: None. RADIOLOGICAL INVESTIGATION: Abdomen x-ray, chest x-ray, and ultrasound of lower extremity. SIGNIFICANT LABORATORY DATA: WBC 6.5, hemoglobin 12.7, and platelet 147. Sodium 137, potassium 2.8, BUN 5, creatinine 0.68, and calcium 8.8. BNP 820. Urinalysis is suggestive of UTI. Blood and urine culture negative. DISCHARGE MEDICATIONS: The patient is planned for discharge to hospice. He will continue comfort care medications as below. 1. Tylenol 650 mg q.6 hourly p.r.n. 2. Aspirin 81 mg daily. 3. Metformin 1000 mg b.i.d. 4. Mirapex 0.125 mg p.o. t.i.d. 5. Restoril 15 mg at bedtime. 6. Carbidopa/levodopa 1/2 tablet p.o. t.i.d. 7. Vitamin B12 1000 mcg p.o. daily. 8. Folic acid 1 mg daily. 9. DuoNeb q.8 hourly. 10. Levaquin 500 mg p.o. daily for 7 days. 11. Lorazepam 1 mg p.o. q.8 hourly. 12. MiraLAX 17 g p.o. daily. 13. Exelon Patch everyday. 14. Florastor 250 mg p.o. daily. 15. Senokot one to two tablets p.o. b.i.d. Above-mentioned medication is going to be prescribed if the patient goes home with home hospice, but if the patient goes to hospice facility, then hospice facility will decide about discharge medication and treatment at hospice facility. CONTRAINDICATION: None. CODE STATUS: DNR. INPATIENT FOR[employer] PREVENTION SPECIALIST: Dr. Bowles was consulted for recurrent fever. TEST RESULT PENDING ON DISCHARGE: None. ALLERGIES: PENICILLIN. DISCHARGE PLAN: Posthospital, the patient will be discharged to hospice. HOSPITAL COURSE: This is an 88-year-old male, who was in hospice care. He has advanced dementia from Parkinson and Alzheimer disease. He has chronic oropharyngeal dysphagia as well as chronic respiratory failure, on home oxygen. He is mostly bedbound status. At home, he had chocking episode and he was having acute hypoxic respiratory failure on chronic respiratory failure. He was initially evaluated at [facility] and he was transferred to our hospital. He was found with aspiration pneumonia and UTI. He was treated with initially Levaquin, and subsequently, vancomycin was added because of recurrent fever. As the patient's family member was uncomfortable to send him home and that is why we consulted Dr. Bowles and he changed antibiotic to meropenem and vancomycin, which he was getting up until yesterday. This patient has confirmed aspiration pneumonia based on x-ray and he is on modified diet from speech therapy, but he is still at risk for aspiration. This patient was DNR while in hospital. We had multiple times discussion while in the hospital about goal of care with the patient and with the patient's family member. Palliative Care is also following. The patient also required transfer to stroke floor because of AFib with RVR, that was controlled with Cardizem drip and digoxin. Subsequently, we discontinued Cardizem drip as well and we also discontinued antibiotic therapy. He is up to his baseline level. He is bedbound almost and he is also advanced-demented patient. Family member agreed with placing him to hospice care. At this point, hospice evaluation is pending and hospice will decide whether he is appropriate for inpatient versus home hospice, and based on that decision, the patient will be discharged later on today. I have seen and examined the patient at bedside today. Plan of care discussed with the patient's physician credentialing specialist. His examination has not changed, but he appears more better than yesterday. Job ID: [id number]
[2019-01-07 12:09] VITALS: BP 102/70
--- NOTE | 2019-01-07 17:05 | EKG ---
Test Reason : STAT Blood Pressure : / mmHG Vent. Rate : 142 BPM Atrial Rate : 133 BPM P-R Int : 000 ms QRS Dur : 102 ms QT Int : 350 ms P-R-T Axes : 000 -52 168 degrees QTc Int : 538 ms Atrial fibrillation with rapid ventricular response Left anterior fascicular block Abnormal ECG Confirmed by LUIS FERNANDO SHERMAN ([id number]) on 01/07/2019 5:05:28 PM Referred By: DIVINA Confirmed By:LUIS FERNANDO SHERMAN
== END 2019-01-07 15:02 | disposition swing bed (61) | DRG 871 ==
LOC: ERS 04:16 → SURG A 05:40 → 2SE 01-05 05:05
PROVIDERS: ADMIT Internal Medicine; ATTEND Internal Medicine
DX: A41.9 Sepsis, unspecified organism (principal); G93.41 Metabolic encephalopathy; J96.21 Acute and chronic respiratory failure with hypoxia; J69.0 Pneumonitis due to inhalation of food and vomit; E87.2 Acidosis; N39.0 Urinary tract infection, site not specified; Z66 Do not resuscitate; G20 Parkinson's disease; G30.9 Alzheimer's disease, unspecified; F02.80 Dementia in other diseases classified elsewhere, unspecified severity, without behavioral disturbance, psychotic disturbance, mood disturbance, and anxiety; I10 Essential (primary) hypertension; I25.10 Atherosclerotic heart disease of native coronary artery without angina pectoris; K21.9 Gastro-esophageal reflux disease without esophagitis; R65.20 Severe sepsis without septic shock; D64.9 Anemia, unspecified; F41.9 Anxiety disorder, unspecified; F32.9 Major depressive disorder, single episode, unspecified; D75.89 Other specified diseases of blood and blood-forming organs; Z51.5 Encounter for palliative care; E11.9 Type 2 diabetes mellitus without complications; E87.6 Hypokalemia; E83.42 Hypomagnesemia; I48.91 Unspecified atrial fibrillation; Z99.81 Dependence on supplemental oxygen; Z74.01 Bed confinement status; Z85.72 Personal history of non-Hodgkin lymphomas; Z88.0 Allergy status to penicillin; Z90.49 Acquired absence of other specified parts of digestive tract; Z95.1 Presence of aortocoronary bypass graft; Z79.84 Long term (current) use of oral hypoglycemic drugs; Z79.899 Other long term (current) drug therapy; Z87.891 Personal history of nicotine dependence
CPT/HCPCS: 36415; 36416; 71045; 74018; 80048; 80053; 80202; 81003; 81015; 83735; 83880; 84100; 85025; 87040; 87086; 93005; 93010; 93970; 94640; 94760; 96360; 96361; J0131; J1160; J1650; J1885; J1940; J1956; J2185; J3370; J3475; J3490; J7050; J7620; S0028